=== PATIENT | female | born 1990 | race Caucasian/White ===

== ENCOUNTER → 2019-11-17 15:02 | Outpatient (BNVA) | payer BC, SELFPAY | PROVIDERS: Visit Provider Nurse Practitioner Family | DX: N12 Tubulo-interstitial nephritis, not specified as acute or chronic (principal); N30.80 Other cystitis without hematuria | CPT/HCPCS: 81001 ==

== ENCOUNTER 2020-01-14 14:31 | Outpatient (CLI) | payer BC, MEDICAID, SELFPAY ==
--- NOTE | 2020-01-14 14:37 | US_ITS ---
WS: [id number] TRANSABDOMINAL PELVIC AND TRANSVAGINAL PELVIC ULTRASOUND HISTORY: PELVIC PAIN, CHRONIC COMPARISON: 05/20/2016 Uterus: 10.30 cm x 6.0 cm x 5.6 cm. Mild enlargement of the uterus is anteverted. No fibroid or mass. Endometrium: 2.0 cm. Uterus is thickened with mild heterogeneity. No discrete mass. Right ovary: 2.0 cm x 2.4 cm x 1.3 cm. No solid or cystic masses. Normal vascularity. Left ovary: 3.2 cm x 1.9 cm x 2.9 cm. No solid or cystic masses. Normal vascularity. No free fluid. US/US pelvic with transvaginal IMPRESSION: 1. Thickened endometrium. Suspect endometrial hyperplasia. No mass identified. Recommend direct visualization with hysteroscopy or short-term ultrasound foll ow-up. 2. No evidence for polycystic ovarian disease.
== END 2020-01-14 14:32 | disposition home or self-care (01) ==
LOC: RAD 14:33
PROVIDERS: PCP Nurse Practitioner Family; Visit Provider Family Medicine
DX: R10.2 Pelvic and perineal pain (principal); R93.89 Abnormal findings on diagnostic imaging of other specified body structures
CPT/HCPCS: 76830; 76856

== ENCOUNTER 2020-01-17 09:32 | Outpatient (CLI) | payer BC, MEDICAID, SELFPAY ==
--- NOTE | 2020-01-17 09:00 | XRR_ITS ---
PROCEDURE INFORMATION: Exam: XR Abdomen, 1 View Exam date and time: 01/17/2020 9:47 AM Age: 29 years old Clinical indication: Condition or disease; Kidney or ureter condition; Calculus (stone) in kidney; Prior surgery; Surgery date: 1-6 months; Surgery type: Kidney stones/stent and removal; Patient HX: Follow up kidney stones TECHNIQUE: Imaging protocol: XR of the abdomen. Views: Frontal supine view of the abdomen. 1 View. COMPARISON: CR Abdomen 1 view [id number] 02/09/2019 7:14 AM FINDINGS: Gastrointestinal tract: The bowel gas pattern is nonspecific. Air filled large bowel including distal rectal gas. Organs: Surgical clips are present in the region of the gallbladder fossa. No calcifications are seen overlying the renal outlines or the expected course of the right or left ureters. No suspicious calcifications within the pelvis. Bones/joints: Unremarkable. XR/XR KUB [id number] IMPRESSION: The bowel gas pattern is nonspecific. Air filled large bowel including distal rectal gas.
== END 2020-01-17 09:33 | disposition home or self-care (01) ==
LOC: RAD 09:36
PROVIDERS: PCP Nurse Practitioner Family; Visit Provider Urology
DX: N20.9 Urinary calculus, unspecified (principal)
CPT/HCPCS: 74018; 80053; 81001

== ENCOUNTER → 2020-02-11 10:32 | Outpatient (BNVA) | payer BC, SELFPAY | PROVIDERS: PCP Nurse Practitioner Family; Visit Provider Obstetrics & Gynecology | DX: Z34.90 Encounter for supervision of normal pregnancy, unspecified, unspecified trimester (principal) | CPT/HCPCS: 80053; 80307; 81025; 83036; 84315; 84702; 85027; 86592; 86762; 86803; 86850; 86900; 87340; 87806 ==

== ENCOUNTER → 2020-02-15 16:06 | Outpatient (BNVA) | payer BC, SELFPAY | PROVIDERS: PCP Nurse Practitioner Family; Visit Provider Obstetrics & Gynecology | DX: Z36.87 Encounter for antenatal screening for uncertain dates (principal) | CPT/HCPCS: 76817 ==

== ENCOUNTER → 2020-02-25 10:40 | Outpatient (BNVA) | payer BC, MEDICAID, SELFPAY | PROVIDERS: PCP Nurse Practitioner Family; Visit Provider Obstetrics & Gynecology | DX: O24.911 Unspecified diabetes mellitus in pregnancy, first trimester (principal); O99.210 Obesity complicating pregnancy, unspecified trimester; Z3A.00 Weeks of gestation of pregnancy not specified | CPT/HCPCS: 82950 ==

== ENCOUNTER → 2020-04-07 08:10 | Outpatient (BNVA) | payer BC, MEDICAID, SELFPAY | PROVIDERS: PCP Nurse Practitioner Family; Visit Provider Nurse Practitioner Women's Health | DX: R73.09 Other abnormal glucose (principal) | CPT/HCPCS: 82951; 82952 ==

== ENCOUNTER → 2020-04-11 09:21 | Outpatient (BNVA) | payer BC, MEDICAID, SELFPAY | PROVIDERS: PCP Nurse Practitioner Family; Visit Provider Obstetrics & Gynecology | DX: O24.912 Unspecified diabetes mellitus in pregnancy, second trimester (principal); O09.92 Supervision of high risk pregnancy, unspecified, second trimester; O99.210 Obesity complicating pregnancy, unspecified trimester; Z3A.00 Weeks of gestation of pregnancy not specified | CPT/HCPCS: 83036; 84315 ==

== ENCOUNTER → 2020-04-18 08:15 | Outpatient (BNVA) | payer BC, MEDICAID, SELFPAY | PROVIDERS: PCP Nurse Practitioner Family; Visit Provider Nurse Practitioner Family | DX: Z11.59 Encounter for screening for other viral diseases (principal) | CPT/HCPCS: 87635 ==

== ENCOUNTER → 2020-05-17 16:06 | Outpatient (BNVA) | payer BC, MEDICAID, SELFPAY | PROVIDERS: PCP Nurse Practitioner Family; Visit Provider Urology | DX: N20.9 Urinary calculus, unspecified (principal); Z87.440 Personal history of urinary (tract) infections | CPT/HCPCS: 81003 ==

== ENCOUNTER 2020-05-29 12:02 | Outpatient (CLI) | payer BC, MEDICAID, SELFPAY ==
[2020-05-29 12:49] LABS: Total Volume Urine 2475 ml; Total Volume, Urine 2475 mL
[2020-05-29 13:02] LABS: Patient Weight 300.6 Lbs
[2020-05-29 13:23] LABS: Basophils # 0.1 10^3/uL (0.0-0.1); Basophils % 0.5 %; Eosinophils # 0.1 10^3/uL (0.0-0.8); Eosinophils % 1.1 %; Hemoglobin 12.9 g/dL (11.5-15.3); Lymphocytes # 3.5 10^3/uL (0.8-4.8); Lymphocytes % 26.4 %; Mean Corpuscular HGB Conc 31.5 g/dL (30.0-36.0); Mean Corpuscular Hemoglobin 26.8 pg (28.0-34.0); Mean Corpuscular Volume 85.1 fL (81-99); Mean Platelet Volume 9.2 fL (7.4-10.4); Monocytes # 0.9 10^3/uL (0.2-0.9); Monocytes % 6.4 %; Neutrophils # 8.66 10^3/uL (1.8-7.7); Neutrophils % 64.9 %; Nucleated Red Blood Cells % 0 %; Platelet Count 279 10^3/cmm (130-400); Red Blood Count 4.82 10^6/uL (4.1-5.3); Red Cell Distribution Width 14.5 % (12.1-15.1); White Blood Count 13.3 10^3/uL (4.0-10.0)
[2020-05-29 13:45] LABS: Alanine Aminotransferase 10 U/L (0-33); Albumin Level 3.6 g/dL (3.5-5.2); Alkaline Phosphatase 57 IU/L (35-105); Anion Gap 15.7 (5-19); Aspartate Amino Transferase 10 U/L (0-32); Blood Urea Nitrogen 8 mg/dL (6-20); Calcium 9.3 mg/dL (8.5-10.5); Carbon Dioxide 24 mmol/L (22-29); Chloride 103 mmol/L (98-107); Globulin 3.3 g/dL (1.3-4.6); Glomerular Filtration Rate 187.4 mL/min (90-130); Glucose 68 mg/dL (65-115); Osmolality Calculated 285 mOsm/kg (285-295); Potassium 3.7 mmol/L (3.5-5.1); Sodium 139 mmol/L (136-145); Total Bilirubin 0.2 mg/dL (0.15-1.2); Total Protein 6.9 g/dL (6.6-8.7)
[2020-05-29 13:49] LABS: Glomerular Filtration Rate 187.4 mL/min (90-130); Microalbumin Total Volume 2475 mL
[2020-05-29 14:21] LABS: Estmated Average Glucose 103; Hemoglobin A1C 5.2 % (4.0-6.0)
[2020-05-29 17:09] LABS: Microalbumin 24 Hour Result 30 mg/24HR (0-30); Microalbumin Result 1.2 mg/dL
[2020-05-29 18:24] LABS: Creatinine Clearance, Urine 377 mL/Min (88-128); Creatinine, Urine (Cre Clear) 83 mg/dL (28-217); Total Protein 24 Hour Urine 141.1 mg/24HR (0-150); Urine Total Protein 24 Hour 5.7 mg/dL (0-150)
== END 2020-05-29 12:03 | disposition home or self-care (01) ==
PROVIDERS: PCP Nurse Practitioner Family; Visit Provider Nurse Practitioner Women's Health
DX: O10.919 Unspecified pre-existing hypertension complicating pregnancy, unspecified trimester (principal)
CPT/HCPCS: 36415; 80053; 82043; 82575; 83036; 84156; 84550; 85025

== ENCOUNTER → 2020-06-21 12:03 | Outpatient (BNVA) | payer BC, MEDICAID, SELFPAY | PROVIDERS: PCP Nurse Practitioner Family; Visit Provider Obstetrics & Gynecology | DX: Z34.90 Encounter for supervision of normal pregnancy, unspecified, unspecified trimester (principal) | CPT/HCPCS: 84315; 85027 ==

== ENCOUNTER 2020-07-13 19:00 | Observation (INO) | payer BC, MEDICAID, SELFPAY ==
[2020-07-13] VITALS (39 sets, daily range): BP systolic 114–196; BP diastolic 64–93; PULSE 88–115; RESP 16; TEMP 36.4–36.7; O2SAT 92–100; BMI 51.6
[2020-07-13 15:20] LABS: Bilirubin Urine Neg (Negative); Blood Urine 2+ (Negative); Glucose Urine UA Norm (Normal); Ketones Urine Negative (Negative); Leukocyte Esterase Urine Negative (Negative); Nitrate Urine Negative (Negative); Protein Urine Neg (Negative); Urine Appearance Cloudy (CLEAR); Urine Color Yellow (Yellow); Urobilinogen Urine Norm (Negative); pH Urine 6.5 (5-7)
[2020-07-13 15:36] LABS: Add Urine Culture? No; Bacteria Urine 2+ /hpf; Calcium Oxalate Crystals Urine 0-4 /hpf; RBC Urine 0-4 /hpf (0-2); Squamous Epithelial Cell Urine 25-40 /hpf (0-5); WBC Urine 15-25 /hpf (0-5)
[2020-07-13 16:19] LABS: Basophils % 0.2 %; Eosinophils # 0.2 10^3/uL (0.0-0.8); Eosinophils % 1.1 %; Hematocrit 40.1 % (37.0-47.0); Lymphocytes # 3.2 10^3/uL (0.8-4.8); Lymphocytes % 22.9 %; Mean Corpuscular HGB Conc 32.4 g/dL (30.0-36.0); Mean Corpuscular Hemoglobin 26.9 pg (28.0-34.0); Mean Platelet Volume 9.2 fL (7.4-10.4); Monocytes % 7.2 %; Neutrophils # 9.37 10^3/uL (1.8-7.7); Neutrophils % 67.8 %; Nucleated Red Blood Cells % 0 %; Platelet Count 253 10^3/cmm (130-400); Red Blood Count 4.83 10^6/uL (4.1-5.3); Red Cell Distribution Width 14.7 % (12.1-15.1); White Blood Count 13.8 10^3/uL (4.0-10.0)
[2020-07-13] MEDS: terbutaline 1 mg/mL INJ 0.25 MG SUBCUT ×2 (16:39→19:55)
[2020-07-13 16:57] LABS: Alanine Aminotransferase 7 U/L (0-33); Albumin Level 3.7 g/dL (3.5-5.2); Alkaline Phosphatase 82 IU/L (35-105); Aspartate Amino Transferase 10 U/L (0-32); Blood Urea Nitrogen 6 mg/dL (6-20); Calcium 9.3 mg/dL (8.5-10.5); Carbon Dioxide 23 mmol/L (22-29); Chloride 104 mmol/L (98-107); Globulin 3.2 g/dL (1.3-4.6); Glomerular Filtration Rate 259.5 mL/min (90-130); Glucose 76 mg/dL (65-115); Osmolality Calculated 284 mOsm/kg (285-295); Sodium 139 mmol/L (136-145); Total Bilirubin 0.2 mg/dL (0.15-1.2); Total Protein 6.9 g/dL (6.6-8.7)
[2020-07-13 17:07] LABS: Urine Creatinine 132 mg/dL (28-217); Urine Protein Random 20 mg/dL
[2020-07-13 17:08] LABS: UPRO/UCREAT Ratio 0.15 mg/mg CR
[2020-07-13] MEDS: cefTRIAXone 2,000 MG in sodium chloride 0.9% (plus) 50 ML 100 MG IV (19:30)
[2020-07-13] MEDS: sodium chloride 0.9% 1,000 ML 125 ML IV (19:30)
--- NOTE | 2020-07-13 19:55 | PC.NURSE ---
Higher pressures showing taken with radial cuff with monitor, lower pressures taken with large red cuff with portable vitals cart.
[2020-07-13 20:04] LABS: Urine Appearance Clear (CLEAR); Urine Color Yellow (Yellow)
[2020-07-13 20:05] LABS: Bilirubin Urine Neg (Negative); Blood Urine Neg (Negative); Glucose Urine UA Norm (Normal); Ketones Urine 2+ (Negative); Leukocyte Esterase Urine Negative (Negative); Nitrate Urine Negative (Negative); Protein Urine Neg (Negative); Urobilinogen Urine Norm (Negative)
[2020-07-13 20:13] LABS: Bacteria Urine TRACE /hpf; RBC Urine 0-4 /hpf (0-2); Squamous Epithelial Cell Urine 0-4 /hpf (0-5)
[2020-07-13 20:14] LABS: Add Urine Culture? No
[2020-07-13 20:22] LABS: Glucose Point of Care 102 mg/dL (70-110)
[2020-07-13] MEDS: hyDROXYzine 25 mg Capsule 50 MG PO (21:51)
[2020-07-13 22:24] LABS: Glucose Point of Care 123 mg/dL (70-110)
--- NOTE | 2020-07-14 02:14 | PM.OBGYHP ---
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 Her is complicated by Gestational diabetes, history of labor, currently on [place] and history of preeclampsia. She was found to be having irregular contractions and she had elevated blood pressures. Labs were performed and found to be normal. An appropriate blood pressure cuff was finally found to use on the patient and her blood pressures were found to be normal as well. She received a dose of terbutaline and the contractions stopped. They started back up again, more irregular and another dose was given of terbutaline. She had an IV started with fluids and rocephin due to the flank pain and blood in her urine. The uterus quieted down and the contractions stopped. She is admitted for observation overnight due to history of labor. Her cervix has remained closed. Present Details : 3 Para: 2 Review of Systems General: Reports: 10 or more systems reviewed and unremarkable except in HPI and below Medications/Allergies Home Medications Medication Instructions Recorded Confirmed Last Taken Type vitamins with calcium 1 tab PO DAILY #90 tab 02/11/20 07/11/20 Unknown Rx no.72-iron 29 mg-folic acid 1 mg tablet blood sugar diagnostic #120 each 04/04/20 07/11/20 Unknown Rx blood-glucose meter #1 each 04/04/20 07/11/20 Unknown Rx lancets #120 each 04/04/20 07/11/20 Unknown Rx loratadine 10 mg tablet 10 mg PO DAILY 04/04/20 07/11/20 Unknown History insulin syringe,safetyneedle 1 mL #100 each 04/13/20 07/11/20 Unknown Rx 29 gauge x 1/2 aspirin 81 mg tablet,delayed 81 mg PO DAILY 05/16/20 07/11/20 Unknown History release insulin aspart U-100 100 unit/mL 33 unit SUBCUT TID ml 07/11/20 07/11/20 Unknown History (3 mL) subcutaneous pen insulin detemir U-100 100 unit/mL 50 unit SUBCUT .every 12 hours ml 07/11/20 07/11/20 Unknown History subcutaneous solution Allergies Allergy/AdvReac Type Severity Reaction Status Date / Time ciprofloxacin [From Cipro] Allergy seizures Verified 07/11/20 11:10 latex Allergy blisters Verified 07/11/20 11:10 Penicillins Allergy hives Verified 07/11/20 11:10 prochlorperazine Allergy seizure Verified 07/11/20 11:10 [From Compazine] promethazine Allergy anaphylaxis Verified 07/11/20 11:10 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 Clotting disorder Grandmother Heart disease Maternal Ovarian cancer, Onset Age: 20 Maternal Denies family history of Bleeding disorder Cancer Social History Smoking and tobacco status: never smoked Alcohol intake: never Other details last substance use: Denies drug use. Other Female Reproductive History: Hx Age of Menarche: 8 History History History 3 Term 0 Miscarriages/Ectopic 0 2 Living Children 2 Care STEFANIA Calculator Estimated Delivery Date Method Current WG Current Estimate 09/19/20 Ultrasound #1 30w 3d Expected Delivery Route/Plan Vaginal Specific Issues/Plans HX OF PTL AND PTD-- 35 and 36 weeks OBESITY DIABETES -- likely pre-gestational Vitals/I&O/Wt Last Vital Signs Temp 97.6 F 07/13/20 19:20 Pulse 103 H 07/13/20 22:16 Resp 16 07/13/20 22:16 BP 137/82 07/13/20 22:16 Pulse Ox 100 07/13/20 18:35 Weight last 48 hrs Weight 301 lb Physical Exam Const: COMMON NORMALS: no acute distress, patient oriented x3 and alert GENERAL APPEARANCE: cooperative, comfortable and well developed ORIENTATION/CONSCIOUSNESS: Yes awake, Yes oriented to person, Yes oriented to place and Yes oriented to time Resp: COMMON NORMALS: normal respiratory effort and No retractions EFFORT & INSPECTION: Yes able to speak in complete sentences Extremity: COMMON NORMALS: normal to inspection and full ROM Psych: COMMON NORMALS: mental status grossly normal, Normal thought process present, cooperative, normal affect and speech normal APPEARANCE: Yes grossly normal ATTITUDE: Yes calm and Yes engaged ACTIVITY/MOTOR BEHAVIOR: Yes appropriate eye contact SPEECH: Yes normal speech THOUGHT PROCESS: Normal thought process present THOUGHT CONTENT: Yes Normal thought content present MEMORY/COGNITION: Yes cognition grossly intact Data : 07/13/20 16:08 07/13/20 16:08 A&P Assessment and plan (1) History of delivery, currently : admit for observation for labor Status: Acute Attestations Medical Necessity Statement*: The patient is admitted for observation Time Spent in Patient Care: 16 - 35 minutes Coding Level of Care Code Acute Aircraft Detail Draftsperson for Sharlene Aguilar Diagnoses History of delivery, currently O09.899
[2020-07-14] MEDS: sodium chloride 0.9% 1,000 ML 125 ML IV (05:16)
[2020-07-14 05:28] VITALS: BP 135/82; PULSE 87; RESP 15; TEMP 36.5; O2SAT 96
[2020-07-14 07:55] LABS: Glucose Point of Care 81 mg/dL (70-110)
[2020-07-14] MEDS: betamethasone susp 6 mg/mL 5 mL 12 MG IM (08:34)
[2020-07-14 10:20] LABS: Glucose Point of Care 77 mg/dL (70-110)
--- NOTE | 2020-07-14 12:25 | P.PN_ITS ---
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 She denies any contractions. there has been good movement. Blood sugars have been a little on the low side. Labor: Station: -5 Amniotic Membrane Status: Intact Monitor Mode: External Contraction Pattern: Rare Status: Category I Vitals/I&O/Wt Last Vital Signs Temp 97.7 F 07/14/20 05:28 Pulse 87 07/14/20 05:28 Resp 15 07/14/20 05:28 BP 135/82 07/14/20 05:28 Pulse Ox 96 07/14/20 05:28 07/13/20 07/14/20 07/14/20 22:59 06:59 14:59 Intake Total 1000 / 1000 50 / 50 Balance 1000 / 1000 50 / 50 Weight last 48 hrs Weight 301 lb Physical Exam Const: COMMON NORMALS: no acute distress, patient oriented x3, alert and well nourished GENERAL APPEARANCE: cooperative, comfortable and well kempt ORIENTATION/CONSCIOUSNESS: Yes awake, Yes oriented to person, Yes oriented to place and Yes oriented to time HENMT: COMMON NORMALS: normocephalic, atraumatic and Normal external nose present HEAD & SCALP: normocephalic and atraumatic FACE & SINUS: normal facial exam NOSE: Normal external nose present Resp: COMMON NORMALS: normal respiratory effort and No retractions EFFORT & INSPECTION: Yes able to speak in complete sentences Extremity: COMMON NORMALS: normal to inspection and no calf tenderness Neuro: COMMON NORMALS: patient oriented x3 SENSORIUM/ORIENTATION: Yes alert, Yes oriented to person, Yes oriented to place and Yes oriented to time Psych: COMMON NORMALS: mental status grossly normal, cooperative, normal affect and speech normal APPEARANCE: Yes grossly normal and Yes well kempt ATTITUDE: Yes calm and Yes engaged SPEECH: Yes normal speech Data : 07/13/20 16:08 07/13/20 16:08 Attestations Medical Necessity Statement*: The patient was admitted for observation. She is doing well and ready for discharge Coding Level of Care Code Acute Equipment Service Associate for Sharlene Aguilar
--- NOTE | 2020-07-14 12:29 | P.DS_ITS ---
Discharge Providers Date of Admission: 07/13/20 19:00 Date of Discharge: July 14, 2020 Attending Provider at Admission: Abelardo Mccollum MD Attending Provider at Discharge: Abelardo Mccollum MD Primary Care Provider: David Alcaraz NP Diagnoses at Discharge Discharge Diagnosis (1) History of delivery, currently : Status: Acute Reason for Visit Reason for Visit: Flank Pain Hospital Course Hospital Course The patient was admitted for observation due to history of labor and presenting with irregular contractions. Her blood pressure was elevated initially, but this was due to no correct cuff being available for her size. another automated blood pressure machine was used and her blood pressures were all normal. She was having contractions and two doses of terbutline were given. The irritablility ceased. She also had blood in her urine. A urine culture was obtained and IV rocephin started as well as IV fluids. all other labs were normal. She was started on a diabetic diet. She did receive a dose of betamethasone and will receive the second dose in 24 hours. She did well overnight and denied any further contractions. She was ready for discharge on day #1 Discharge Data Data Completed and Pending: Pending at discharge Category Date Time Status Urine Culture Sta t Lab 07/13/20 19:15 Received Labs from last 24 hours 07/14/20 07/14/20 07/13/20 10:14 07:40 22:19 WBC RBC Hgb Hct MCV MCH MCHC RDW Plt Count MPV Neut % (Auto) Lymph % (Auto) [place] % (Auto) Eos % (Auto) Baso % (Auto) Neut # (Auto) Lymph # (Auto) [place] # (Auto) Eos # (Auto) Baso # (Auto) Nucleated RBC % (a uto) Nucleated RBCs # Sodium Potassium Chloride Carbon Dioxide Anion Gap BUN Creatinine GFR Calculation Glucose POC Glucose 77 81 123 H Calculated Osmolal ity Uric Acid Calcium Total Bilirubin AST ALT Alkaline Phosphata se Total Protein Albumin Globulin Urine Color Urine Appearance Urine pH Ur Specific Gravit y Urine Protein Urine Glucose (UA) Urine Ketones Urine Blood Urine Nitrate Urine Bilirubin Urine Urobilinogen Ur Leukocyte Karla ase Urine RBC Urine WBC Ur Squamous Epith Cells Calcium Oxalate Cr ystal Amorphous Sediment Urine Bacteria U Random Total Pro tein Urine Creatinine Protein/Creatinin Ratio 07/13/20 07/13/20 07/13/20 20:16 19:15 16:08 WBC RBC Hgb Hct MCV MCH MCHC RDW Plt Count MPV Neut % (Auto) Lymph % (Auto) [place] % (Auto) Eos % (Auto) Baso % (Auto) Neut # (Auto) Lymph # (Auto) [place] # (Auto) Eos # (Auto) Baso # (Auto) Nucleated RBC % (a uto) Nucleated RBCs # Sodium 139 Potassium 4.0 Chloride 104 Carbon Dioxide 23 Anion Gap 16.0 BUN 6 Creatinine 0.3 L GFR Calculation 259.5 H Glucose 76 POC Glucose 102 Calculated Osmolal ity 284 L Uric Acid 4.0 Calcium 9.3 Total Bilirubin 0.2 AST 10 ALT 7 Alkaline Phosphata se 82 Total Protein 6.9 Albumin 3.7 Globulin 3.2 Urine Color Yellow Urine Appearance Clear Urine pH 6.0 Ur Specific [place] 1.020 Urine Protein Neg Urine Glucose (UA) Norm Urine Ketones 2+ H Urine Blood Neg Urine Nitrate Negative Urine Bilirubin Neg Urine Urobilinogen Norm Ur Leukocyte Karla ase Negative Urine RBC 0-4 H Urine WBC None Ur Squamous Epith Cells 0-4 H Calcium Oxalate Cr ystal Amorphous Sediment Not Reportable Urine Bacteria Trace U Random Total Pro tein Urine Creatinine Protein/Creatinin Ratio 07/13/20 07/13/20 07/13/20 16:08 16:08 14:45 WBC 13.8 H RBC 4.83 Hgb 13.0 Hct 40.1 MCV 83.0 MCH 26.9 L MCHC 32.4 RDW 14.7 Plt Count 253 MPV 9.2 Neut % (Auto) 67.8 Lymph % (Auto) 22.9 [place] % (Auto) 7.2 Eos % (Auto) 1.1 Baso % (Auto) 0.2 Neut # (Auto) 9.37 H Lymph # (Auto) 3.2 [place] # (Auto) 1.0 H Eos # (Auto) 0.2 Baso # (Auto) 0.0 Nucleated RBC % (a uto) 0 Nucleated RBCs # 0.0 Sodium Potassium Chloride Carbon Dioxide Anion Gap BUN Creatinine GFR Calculation Glucose POC Glucose Calculated Osmolal ity Uric Acid Calcium Total Bilirubin AST ALT Alkaline Phosphata se Total Protein Albumin Globulin Urine Color Yellow Urine Appearance Cloudy Urine pH 6.5 Ur Specific [place] 1.020 Urine Protein Neg Urine Glucose (UA) Norm Urine Ketones Negative Urine Blood 2+ H Urine Nitrate Negative Urine Bilirubin Neg Urine Urobilinogen Norm Ur Leukocyte Karla ase Negative Urine RBC 0-4 H Urine WBC 15-25 H Ur Squamous Epith Cells 25-40 H Calcium Oxalate Cr ystal 0-4 H Amorphous Sediment Not Reportable Urine Bacteria 2+ H U Random Total Pro tein 20 Urine Creatinine 132 Protein/Creatinin Ratio 0.15 Vitals: Last Vital Signs Temp 97.7 F 07/14/20 05:28 Pulse 87 07/14/20 05:28 Resp 15 07/14/20 05:28 BP 135/82 07/14/20 05:28 Pulse Ox 96 07/14/20 05:28 Discharge Plan Discharge Condition: Stable Prescriptions: Continued Plus 29 mg iron- 1 mg tablet 1 tab PO DAILY Qty: 90 RF: 3 loratadine [Claritin] 10 mg tablet 10 mg PO DAILY RF: 0 aspirin [Aspirin Low Dose] 81 mg tablet,delayed release (DR/EC) 81 mg PO DAILY RF: 0 insulin aspart U-100 [Novolog Flexpen U-100 Insulin] 100 unit/mL (3 mL) insulin pen 33 unit SUBCUT TID RF: 0 Levemir U-100 Insulin 100 unit/mL solution 50 unit SUBCUT .every 12 hours RF: 0 (DME) blood-glucose meter [Blood Glucose Monitoring] Kit See Rx Instructions .ROUTE .MEDSUPPLY Qty: 1 RF: 0 (DME) Blood Glucose Test Strip See Rx Instructions .ROUTE .MEDSUPPLY Qty: 120 RF: 5 (DME) lancets [Lancets,Thin] Misc See Rx Instructions .ROUTE .MEDSUPPLY Qty: 120 RF: 5 (DME) insulin syringe,safetyneedle 1 mL 29 gauge x 1/2 syringe See Rx Instructions .ROUTE .MEDSUPPLY Qty: 100 RF: 12 Discharge Orders: Discharge Order (Routine); Ordered 07/14/20 Ordered By: Irina Gandara Discharge Attestations Time Spent in Discharge Care*: less than 30 min Quality Metrics Clinical Quality Measures During this hospital stay, did patient experience: None Coding Level of Care Code Acute Social Services Assistant for Chg Fwd Diagnoses History of delivery, currently O09.899
[2020-07-14 13:50] VITALS: BP 114/69; PULSE 101; RESP 17; TEMP 36.8
[2020-07-14 20:37] VITALS: BP 114/69; PULSE 101; RESP 17; TEMP 36.8
[2020-07-22 04:26] VITALS: BP 135/74; PULSE 80
== END 2020-07-14 14:10 | disposition home or self-care (01) ==
LOC: OBGYN 07-14 12:29 → OPOB 08-08 11:05 → OBGYN 08-08 11:05
PROVIDERS: Obstetrics & Gynecology; Admitting Provider Obstetrics & Gynecology; PCP Nurse Practitioner Family; Visit Provider Obstetrics & Gynecology
DX: O09.213 Supervision of pregnancy with history of pre-term labor, third trimester (principal); O24.419 Gestational diabetes mellitus in pregnancy, unspecified control; Z3A.30 30 weeks gestation of pregnancy; Z79.4 Long term (current) use of insulin; Z79.82 Long term (current) use of aspirin
CPT/HCPCS: 12345; 36415; 36416; 51702; 59025; 80053; 81001; 82570; 82962; 84156; 84550; 85025; 87086; 96360; 96372; 99211; G0378; J0696; J0702; J3105; J7030

== ENCOUNTER 2020-07-15 08:06 | Outpatient (CLI) | payer BC, MEDICAID, SELFPAY ==
[2020-07-15] VITALS (11 sets, daily range): BP systolic 134–153; BP diastolic 65–85; PULSE 90–100; RESP 17; TEMP 36.4
[2020-07-15] MEDS: lactated ringers 1,000 ML 999 ML IV (10:06)
[2020-07-15 10:27] LABS: Add Urine Microscopic? NO
[2020-07-15 10:32] LABS: Bilirubin Urine Neg (Negative); Blood Urine Neg (Negative); Glucose Urine UA Norm (Normal); Ketones Urine Negative (Negative); Leukocyte Esterase Urine Negative (Negative); Nitrate Urine Negative (Negative); Protein Urine Neg (Negative); Specific Gravity, Urine 1.015 (1.005-1.030); Urine Appearance Clear (CLEAR); Urine Color Straw (Yellow); Urobilinogen Urine Norm (Negative); pH Urine 6.5 (5-7)
[2020-07-15] MEDS: betamethasone susp 6 mg/mL 5 mL 12 MG IM (10:47)
[2020-07-15 11:05] LABS: Urine Creatinine 58 mg/dL (28-217); Urine Protein Random 12 mg/dL
[2020-07-15 11:10] LABS: UPRO/UCREAT Ratio 0.21 mg/mg CR
--- NOTE | 2020-07-15 12:32 | PM.ACPR ---
Procedure/Consent Procedure Narrative: NONSTRESS TEST: Place of test: [facility] [place]D Indication: 30-year-old 3 para 0-2-0-2, diabetes, likely chronic hypertensive, Date and time of test: 07/15/2020, 10:30 AM Baseline: 145, Variability: Moderate variability Accelerations: Present Decelerations: None Tocometry: No contractions INTERPRETATION: NST reactive, continue kick counts
== END 2020-07-15 11:20 | disposition home or self-care (01) ==
LOC: OPOB 08:11 → OBGYN 08:12
PROVIDERS: PCP Nurse Practitioner Family; Visit Provider Obstetrics & Gynecology
DX: O24.419 Gestational diabetes mellitus in pregnancy, unspecified control (principal); Z3A.00 Weeks of gestation of pregnancy not specified
CPT/HCPCS: 12345; 59025; 81003; 82570; 84156; 96360; 96361; 96372; J0702

== ENCOUNTER 2020-08-01 14:58 | Outpatient (CLI) | payer BC, MEDICAID, SELFPAY ==
[2020-08-01] VITALS (17 sets, daily range): BP systolic 143–213; BP diastolic 65–88; PULSE 91–114; RESP 18; O2SAT 98–100; BMI 51.6
[2020-08-01] MEDS: terbutaline 1 mg/mL INJ 0.25 MG SUBCUT (15:59)
== END 2020-08-01 17:05 | disposition home or self-care (01) ==
LOC: OPOB 15:01 → OBGYN 15:05
PROVIDERS: PCP Nurse Practitioner Family; Visit Provider Obstetrics & Gynecology
DX: O26.899 Other specified pregnancy related conditions, unspecified trimester (principal); Z3A.00 Weeks of gestation of pregnancy not specified; R10.9 Unspecified abdominal pain
CPT/HCPCS: 81000; 96372; 99211; J3105

== ENCOUNTER 2020-08-04 09:20 | Outpatient (CLI) | payer BC, MEDICAID, SELFPAY ==
[2020-08-04 09:20] VITALS: BMI 51.8
[2020-08-04 09:41] VITALS: BP 135/89; PULSE 105; TEMP 36.4
--- NOTE | 2020-08-04 09:44 | US_ITS ---
WS: [id number] ULTRASOUND OB LIMITED TECHNIQUE: Limited ultrasound examination of the fetus. CLINICAL INFORMATION: hypertension; gestational diabetes COMPARISON: None. FINDINGS: Cervix measures 5.1 cm Ultrasound gestational age 32 weeks 4 days with estimated delivery September 25, 2020 Single interuterine gestation. presentation is vertex heart rate 147 BPM. Normal JOSE 7.5 cm Biophysical profile 8 out of 8. breathin movement: 2 tone: 2 Amniotic fluid: 2 IMPRESSION Normal biophysical profile 8 out of 8
--- NOTE | 2020-08-04 10:03 | PC.NURSE ---
Order clarification Orders were called over at 0908 for BPP only. NST was completed in office and patient sent over for test. Pt was asked why she was sent over for BPP due to not being on the schedule. She stated that she thought it was because there was not an US tech at the office. This nurse notified the [facility] for clarification of order at 0936. This nurse spoke with (nurse of Dr. Mccollum) and asked for her to clarify with physician that he did not want monitoring performed while patient was on the floor. She stated that he does not want monitoring performed. He only want the BPP.
[2020-08-04 10:18] VITALS: BP 133/83; PULSE 96
== END 2020-08-04 10:16 | disposition home or self-care (01) ==
LOC: OPOB 09:21 → OBGYN 09:22
PROVIDERS: PCP Nurse Practitioner Family; Visit Provider Obstetrics & Gynecology
DX: O26.899 Other specified pregnancy related conditions, unspecified trimester (principal); Z3A.00 Weeks of gestation of pregnancy not specified
CPT/HCPCS: 76819; 99211

== ENCOUNTER → 2020-08-08 10:49 | Outpatient (BNVA) | payer BC, MEDICAID, SELFPAY | PROVIDERS: PCP Nurse Practitioner Family; Visit Provider Obstetrics & Gynecology | DX: O09.92 Supervision of high risk pregnancy, unspecified, second trimester (principal); O24.112 Pre-existing type 2 diabetes mellitus, in pregnancy, second trimester; O36.63X0 Maternal care for excessive fetal growth, third trimester, not applicable or unspecified; O10.913 Unspecified pre-existing hypertension complicating pregnancy, third trimester; O09.899 Supervision of other high risk pregnancies, unspecified trimester; O99.210 Obesity complicating pregnancy, unspecified trimester; Z87.440 Personal history of urinary (tract) infections; N20.9 Urinary calculus, unspecified; Z3A.00 Weeks of gestation of pregnancy not specified; E34.9 Endocrine disorder, unspecified; E66.9 Obesity, unspecified | CPT/HCPCS: 81000 ==

== ENCOUNTER → 2020-08-15 15:02 | Outpatient (BNVA) | payer BC, MEDICAID, SELFPAY | PROVIDERS: PCP Nurse Practitioner Family; Visit Provider Obstetrics & Gynecology | DX: O10.913 Unspecified pre-existing hypertension complicating pregnancy, third trimester (principal) | CPT/HCPCS: 80053; 81000; 82570; 84156; 84550; 85025 ==

== ENCOUNTER → 2020-08-17 00:01 | Outpatient (BNVA) | payer BC, MEDICAID, SELFPAY | PROVIDERS: PCP Nurse Practitioner Family; Visit Provider Obstetrics & Gynecology | DX: O10.913 Unspecified pre-existing hypertension complicating pregnancy, third trimester (principal); O09.92 Supervision of high risk pregnancy, unspecified, second trimester; O24.912 Unspecified diabetes mellitus in pregnancy, second trimester; O36.63X0 Maternal care for excessive fetal growth, third trimester, not applicable or unspecified; N20.9 Urinary calculus, unspecified; O99.213 Obesity complicating pregnancy, third trimester; O24.112 Pre-existing type 2 diabetes mellitus, in pregnancy, second trimester; Z3A.00 Weeks of gestation of pregnancy not specified | CPT/HCPCS: 84156 ==

== ENCOUNTER → 2020-08-22 08:32 | Outpatient (BNVA) | payer BC, MEDICAID, SELFPAY | PROVIDERS: PCP Nurse Practitioner Family; Visit Provider Obstetrics & Gynecology | DX: O09.93 Supervision of high risk pregnancy, unspecified, third trimester (principal); O24.112 Pre-existing type 2 diabetes mellitus, in pregnancy, second trimester; O10.913 Unspecified pre-existing hypertension complicating pregnancy, third trimester; Z3A.00 Weeks of gestation of pregnancy not specified | CPT/HCPCS: 81000; 87077; 87081; 87184 ==

== ENCOUNTER → 2020-08-24 13:34 | Outpatient (BNVA) | payer BC, MEDICAID, SELFPAY | PROVIDERS: PCP Nurse Practitioner Family; Visit Provider Obstetrics & Gynecology | DX: O09.93 Supervision of high risk pregnancy, unspecified, third trimester (principal); Z11.52 Encounter for screening for COVID-19 | CPT/HCPCS: 87635 ==

== ENCOUNTER 2020-08-29 17:30 | Inpatient (IN) | payer BC, MEDICAID, SELFPAY ==
[2020-08-29] VITALS (37 sets, daily range): BP systolic 128–178; BP diastolic 58–94; PULSE 88–113; RESP 16; TEMP 36.7–37.1; BMI 53.5
--- NOTE | 2020-08-29 17:45 | PC.NURSE ---
Dr. Tavarez on unit. Gave orders for preeclamptic profile, hypertension crisis protocol, l&d admit orders. Call with lab results and more orders will be given at that time.
[2020-08-29 18:45] LABS: Basophils # 0.1 10^3/uL (0.0-0.1); Basophils % 0.4 %; Eosinophils # 0.2 10^3/uL (0.0-0.8); Eosinophils % 1.1 %; Hematocrit 41.2 % (37.0-47.0); Hemoglobin 13.3 g/dL (11.5-15.3); Lymphocytes # 2.7 10^3/uL (0.8-4.8); Lymphocytes % 20.7 %; Mean Corpuscular HGB Conc 32.3 g/dL (30.0-36.0); Mean Corpuscular Hemoglobin 26.5 pg (28.0-34.0); Mean Corpuscular Volume 82.1 fL (81-99); Mean Platelet Volume 9.9 fL (7.4-10.4); Monocytes # 0.9 10^3/uL (0.2-0.9); Monocytes % 7.2 %; Neutrophils # 9.19 10^3/uL (1.8-7.7); Neutrophils % 70.1 %; Nucleated Red Blood Cells % 0 %; Platelet Count 262 10^3/cmm (130-400); Red Blood Count 5.02 10^6/uL (4.1-5.3); Red Cell Distribution Width 15.3 % (12.1-15.1); White Blood Count 13.1 10^3/uL (4.0-10.0)
[2020-08-29 19:02] LABS: Alanine Aminotransferase 10 U/L (0-33); Albumin Level 3.3 g/dL (3.5-5.2); Alkaline Phosphatase 120 IU/L (35-105); Anion Gap 13.4 (5-19); Aspartate Amino Transferase 17 U/L (0-32); Blood Urea Nitrogen 13 mg/dL (6-20); Calcium 9.2 mg/dL (8.5-10.5); Carbon Dioxide 20 mmol/L (22-29); Chloride 102 mmol/L (98-107); Globulin 3.2 g/dL (1.3-4.6); Glomerular Filtration Rate 186.2 mL/min (90-130); Glucose 116 mg/dL (65-115); Osmolality Calculated 275 mOsm/kg (285-295); Potassium 3.4 mmol/L (3.5-5.1); Sodium 132 mmol/L (136-145); Total Bilirubin 0.2 mg/dL (0.15-1.2); Total Protein 6.5 g/dL (6.6-8.7)
[2020-08-29 19:24] LABS: Urine Appearance Clear (CLEAR); Urine Color Yellow (Yellow)
[2020-08-29 19:25] LABS: Add Urine Microscopic? YES; Bacteria Urine 2+ /hpf; Bilirubin Urine Neg (Negative); Blood Urine 2+ (Negative); Glucose Urine UA Norm (Normal); Ketones Urine Negative (Negative); Leukocyte Esterase Urine Trace (Negative); Nitrate Urine Negative (Negative); Protein Urine Neg (Negative); Squamous Epithelial Cell Urine 15-25 /hpf (0-5); Urobilinogen Urine Norm (Negative); WBC Urine 15-25 /hpf (0-5); pH Urine 6.5 (5-7)
[2020-08-29 20:49] LABS: Glucose Point of Care 67 mg/dL (70-110)
[2020-08-29] MEDS: NIFEdipine ER (24 hr) 30 mg Tablet PO (21:04)
[2020-08-29] MEDS: dextrose 50% syringe 50 mL 25 ML IVP (21:05)
[2020-08-29] MEDS: dextrose 5%-lactated ringers 1,000 ML 125 ML IV (21:20)
[2020-08-29 21:50] LABS: Urine Creatinine 164 mg/dL (28-217)
[2020-08-29 21:53] LABS: Urine Protein Random 32 mg/dL
[2020-08-29 22:10] LABS: Glucose Point of Care 100 mg/dL (70-110)
[2020-08-29] MEDS: oxytocin 30 UNIT/500 ML BAG IV (22:52)
[2020-08-30] VITALS (133 sets, daily range): BP systolic 120–171; BP diastolic 56–93; PULSE 69–136; RESP 16–20; TEMP 36.3–37.2; O2SAT 92–100
[2020-08-30 00:07] LABS: Glucose Point of Care 85 mg/dL (70-110)
[2020-08-30 01:06] LABS: Glucose Point of Care 92 mg/dL (70-110)
[2020-08-30 03:18] LABS: Glucose Point of Care 92 mg/dL (70-110)
[2020-08-30] MEDS: fentaNYL 50 mcg/mL INJ 2mL IV ×3 (03:42→07:23)
[2020-08-30 05:16] LABS: Glucose Point of Care 103 mg/dL (70-110)
[2020-08-30] MEDS: dextrose 5%-lactated ringers 1,000 ML 125 ML IV ×3 (05:34→21:54)
[2020-08-30] MEDS: lactated ringers 1,000 ML 999 ML IV (07:23)
[2020-08-30 08:06] LABS: Glucose Point of Care 86 mg/dL (70-110)
[2020-08-30 09:22] LABS: Glucose Point of Care 84 mg/dL (70-110)
--- NOTE | 2020-08-30 10:03 | ANES.PREANE2 ---
Pre-Anesthetic Assessment Pre-Anesthetic Assessment: Height/Weight: Height 1.63 m Weight 141.521 kg Temp Pulse Resp BP Pulse Ox 98.1 F 93 18 135/65 98 08/30/20 07:00 08/30/20 09:57 08/30/20 07:23 08/30/20 09:57 08/30/20 09:11 Was Beta Charbel taken within 24 hours: N/A Social: Social History: No alcohol and No tobacco Exam: Pre-Anes Outpt Exam: alert, oriented x 3, clear to auscultation bilaterally and regular rate & rhythm Airway: Submandibular: WNL Cervical ROM: WNL MP: 2 Dentition: Full CV/HEM: CV/HEM: HTN Metabolic: Metabolic: DM and Morbid obesity Comments: Gravid Anesthetic Plan: ASA status: 3 Other: Labor epidural Risk of > 500 ml blood loss (7ml/kg in children): No Meds/Allergies Current Medications: Current Medications Generic Name Dose Route Start Last Admin Trade Name Freq PRN Reason Stop Dose Admin Fentanyl 25 - 100 mcg 08/30/20 03:23 08/30/20 07:23 Fentanyl 50 Mcg/ Ml Inj 2ml IV 75 mcg Q1H PRN Administration SEVERE PAIN Dextrose/Lactated Ringer's 1,000 mls @ 125 m ls/hr 08/29/20 18:30 08/30/20 05:34 Dextrose 5%-Lact ated Ringers IV 125 mls/hr .Q8H LÓPEZ Administration Oxytocin 30 unit in 500 ml s @ 1 mls/hr 08/29/20 22:30 08/30/20 00:45 Pitocin IV 4 milliunit/min .Q24H LÓPEZ 4 mls/hr Titration Protocol 1 MILLIUNIT/MIN Lactated Ringer's 1,000 mls @ 999 m ls/hr 08/30/20 07:03 08/30/20 07:23 Lactated Ringers IV 999 mls/hr .Q1H1M PRN Administration See label comment s Nifedipine 30 mg 08/29/20 21:00 08/29/20 21:04 Nifedipine Er (2 4 Hr) 30 Mg Tablet PO 30 mg BEDTIME LÓPEZ Administration PFSH Anesthesia PFSH: Medical History Diabetes No pertinent past medical history neghx:thyroid,dvt/pe,herpes Denies partner hx of herpes Urolithiasis Surgical History History of cholecystectomy History of lithotripsy (~07/2018) History of renal stent (~07/2018) right History of tonsillectomy History of wisdom tooth extraction Family History Family/Other CAD (coronary artery disease) Mother Stroke Diabetes Hypertension Hyperlipidemia Anesthesia complication mother coded coming out of anesthesia during her hysterectomy; questionable if an actual anesthesia complication. Clotting disorder Grandmother Heart disease Maternal Ovarian cancer, Onset Age: 20 Maternal Denies family history of Bleeding disorder Cancer Social History Smoking and tobacco status: never smoked Alcohol intake: never Other details last substance use: Denies drug use. Female Reproductive History: Date of last menstrual period: 10/22/19 : 3 Data Anesthesia CBC & Chem 7: 08/29/20 18:28 08/29/20 18:28 Other Labs: Laboratory Results - last 48 hr 08/29/20 08/29/20 08/29/20 18:28 18:28 18:28 WBC 13.1 H RBC 5.02 Hgb 13.3 Hct 41.2 MCV 82.1 MCH 26.5 L MCHC 32.3 RDW 15.3 H Plt Count 262 MPV 9.9 Neut % (Auto) 70.1 Lymph % (Auto) 20.7 Person % (Auto) 7.2 Eos % (Auto) 1.1 Baso % (Auto) 0.4 Neut # (Auto) 9.19 H Lymph # (Auto) 2.7 Person # (Auto) 0.9 Eos # (Auto) 0.2 Baso # (Auto) 0.1 Nucleated RBC % (auto) 0 Nucleated RBCs # 0.0 Sodium Potassium Chloride Carbon Dioxide Anion Gap BUN Creatinine GFR Calculation Glucose POC Glucose Calculated Osmolality Uric Acid Calcium Total Bilirubin AST ALT Alkaline Phosphatase Total Protein Albumin Globulin Urine Color Yellow Urine Appearance Clear Urine pH 6.5 Ur Specific [place] 1.020 Urine Protein Neg Urine Glucose (UA) Norm Urine Ketones Negative Urine Blood 2+ H Urine Nitrate Negative Urine Bilirubin Neg Urine Urobilinogen Norm Ur Leukocyte Esterase Trace H Urine RBC 5-10 H Urine WBC 15-25 H Ur Squamous Epith Cells 15-25 H Calcium Oxalate Crystal 5-10 H Amorphous Sediment Not Reportable Urine Bacteria 2+ H U Random Total Protein 32 Urine Creatinine 164 Protein/Creatinin Ratio 0.20 08/29/20 08/29/20 08/29/20 18:28 20:45 22:00 WBC RBC Hgb Hct MCV MCH MCHC RDW Plt Count MPV Neut % (Auto) Lymph % (Auto) Person % (Auto) Eos % (Auto) Baso % (Auto) Neut # (Auto) Lymph # (Auto) Person # (Auto) Eos # (Auto) Baso # (Auto) Nucleated RBC % (auto) Nucleated RBCs # Sodium 132 L Potassium 3.4 L Chloride 102 Carbon Dioxide 20 L Anion Gap 13.4 BUN 13 Creatinine 0.4 L GFR Calculation 186.2 H Glucose 116 H POC Glucose 67 L 100 Calculated Osmolality 275 L Uric Acid 5.0 Calcium 9.2 Total Bilirubin 0.2 AST 17 ALT 10 Alkaline Phosphatase 120 H Total Protein 6.5 L Albumin 3.3 L Globulin 3.2 Urine Color Urine Appearance Urine pH Ur Specific [place] Urine Protein Urine Glucose (UA) Urine Ketones Urine Blood Urine Nitrate Urine Bilirubin Urine Urobilinogen Ur Leukocyte Esterase Urine RBC Urine WBC Ur Squamous Epith Cells Calcium Oxalate Crystal Amorphous Sediment Urine Bacteria U Random Total Protein Urine Creatinine Protein/Creatinin Ratio 08/30/20 08/30/20 08/30/20 00:04 01:02 03:04 WBC RBC Hgb Hct MCV MCH MCHC RDW Plt Count MPV Neut % (Auto) Lymph % (Auto) Person % (Auto) Eos % (Auto) Baso % (Auto) Neut # (Auto) Lymph # (Auto) Person # (Auto) Eos # (Auto) Baso # (Auto) Nucleated RBC % (auto) Nucleated RBCs # Sodium Potassium Chloride Carbon Dioxide Anion Gap BUN Creatinine GFR Calculation Glucose POC Glucose 85 92 92 Calculated Osmolality Uric Acid Calcium Total Bilirubin AST ALT Alkaline Phosphatase Total Protein Albumin Globulin Urine Color Urine Appearance Urine pH Ur Specific [place] Urine Protein Urine Glucose (UA) Urine Ketones Urine Blood Urine Nitrate Urine Bilirubin Urine Urobilinogen Ur Leukocyte Esterase Urine RBC Urine WBC Ur Squamous Epith Cells Calcium Oxalate Crystal Amorphous Sediment Urine Bacteria U Random Total Protein Urine Creatinine Protein/Creatinin Ratio 08/30/20 08/30/20 08/30/20 05:06 07:20 09:16 WBC RBC Hgb Hct MCV MCH MCHC RDW Plt Count MPV Neut % (Auto) Lymph % (Auto) Person % (Auto) Eos % (Auto) Baso % (Auto) Neut # (Auto) Lymph # (Auto) Person # (Auto) Eos # (Auto) Baso # (Auto) Nucleated RBC % (auto) Nucleated RBCs # Sodium Potassium Chloride Carbon Dioxide Anion Gap BUN Creatinine GFR Calculation Glucose POC Glucose 103 86 84 Calculated Osmolality Uric Acid Calcium Total Bilirubin AST ALT Alkaline Phosphatase Total Protein Albumin Globulin Urine Color Urine Appearance Urine pH Ur Specific [place] Urine Protein Urine Glucose (UA) Urine Ketones Urine Blood Urine Nitrate Urine Bilirubin Urine Urobilinogen Ur Leukocyte Esterase Urine RBC Urine WBC Ur Squamous Epith Cells Calcium Oxalate Crystal Amorphous Sediment Urine Bacteria U Random Total Protein Urine Creatinine Protein/Creatinin Ratio Cardiac Studies: No Data to Display
--- NOTE | 2020-08-30 10:04 | ANES.PROC ---
Anesthesia Procedures Procedure/Date: 08/30/20 Lumbar Puncture: Time Out Performed: Yes Consent: requested by attending/covering physician, from patient and risks and benefits reviewed
--- NOTE | 2020-08-30 10:05 | ANES.PROC ---
Anesthesia Procedures Procedure/Date: 08/30/20 Epidural: Time Out Performed: Yes Consents Signed: Procedure Consent Consent: requested by attending/covering physician, from patient and risks and benefits reviewed Lumbar Level: L3-L4 Epidural position: sitting Epidural procedure: sterile prep of area, 1% lidocaine to numb the area, 18 g needle, neg for paresthesia, test dose given, placed PCEA, no systemic response, sterile dressing applied and 0.2% Ropiavacaine @ mls/hr (13) Additional Comments: MIRTHA at 7cm, catheter at 12cm
[2020-08-30 11:22] LABS: Glucose Point of Care 88 mg/dL (70-110)
[2020-08-30 13:15] LABS: Glucose Point of Care 93 mg/dL (70-110)
[2020-08-30 15:24] LABS: Glucose Point of Care 83 mg/dL (70-110)
[2020-08-30 17:27] LABS: Glucose Point of Care 81 mg/dL (70-110)
[2020-08-30 19:21] LABS: Glucose Point of Care 86 mg/dL (70-110)
[2020-08-30] MEDS: acetaminophen 325 mg Tablet 650 MG PO (19:21)
[2020-08-30 21:20] LABS: Glucose Point of Care 95 mg/dL (70-110)
[2020-08-31] VITALS (20 sets, daily range): BP systolic 129–145; BP diastolic 66–88; PULSE 105–151; RESP 18–20; TEMP 36.2–36.7
--- NOTE | 2020-08-31 00:19 | PM.DELIVERY ---
Delivery Note: Date of delivery: August 31, 2020 Pre-delivery diagnoses: Term Diabetes in Chronic hypertension macrosomia Obesity affecting Post-delivery diagnoses: Term delivered. Same as above Procedure: Spontaneous vaginal delivery Op report anesthesia: Epidural Estimated blood loss (mL): 300 Pre-Delivery Course: The patient is a 30-year-old, 3, para 0-2-0-2, with an LMP in October 2019 and an EDC of 09/19/2020 based on 9-week ultrasound, which places her at 37 3/7 weeks gestation today. who has been receiving care from [facility]. Admitted for induction due to diabetes, and chronic hypertension. HPI: Received appropriate care with MFM in consult. complicated by diabetes, chronic hypertension microsomia and obesity. She has been taking daily vitamins since start of care. labs have all been normal, including negative for HIV. She was found to negative for Group B Strep from screening at 36 weeks. She has gained approximately 11 lbs throughout the . Delivery: The patient was noted to be complete and pushing, so was placed in the dorsal lithotomy position, prepped and draped in the usual sterile fashion for a vaginal delivery. Pt. Noted to have epidural anesthesia. At 0008 the patient delivered a viable at 37+2 weeks male infant weighing 3990 g with scores of 7 and 9 at one and five minutes, respectively. The vertex was delivered spontaneously over an intact perineum. The patient was asked to push and the head delivered spontaneously in the ROJELIO position, over an intact perineum. A nuchal cord was checked and none noted. The anterior shoulder delivered easily and the posterior shoulder followed. The remainder of the infant was easily delivered and the oropharynx and nasopharynx was bulb suctioned. The was noted to have spontaneous cry and spontaneous movement of all four extremities. The cord was clamped x 2 and cut and noted to have 2 arteries and one vein. The was passed to the mother's abdomen where nursing personnel were in attendance. The placenta delivered intact spontaneously and the uterus was explored. 20 units of Pitocin was placed in the IV bag to firm the uterus. Examination of the cervix and vaginal vault did not reveal any lacerations. A vaginal pack was then placed. Examination of the perineum showed no laceration. The vaginal pack was then removed. The patient tolerated this procedure well, and recovered in L&D with her . All sponge and needle counts were correct. A&P Assessment and plan (1) Chronic hypertension in obstetric context in third trimester: Status: Acute (2) macrosomia during in third trimester: Status: Acute Qualifiers: Fetus number: single or unspecified fetus Qualified Code(s): O36.63X0 - Maternal care for excessive growth, third trimester, not applicable or unspecified (3) Diabetes in : Status: Acute Qualifiers: Diabetes in type: pre-existing, type 2 Trimester: second trimester Qualified Code(s): O24.112 - Pre-existing type 2 diabetes mellitus, in , second trimester (4) Obesity affecting : Status: Acute Qualifiers: Trimester: third trimester Qualified Code(s): O99.213 - Obesity complicating , third trimester Coding Level of Care Code Acute Em Physician for Chg Fwd Diagnoses Chronic hypertension in obstetric context in third trimester O10.913 macrosomia during in third trimester O36.63X0 Fetus number: single or unspecified fetus Diabetes in O24.112 Diabetes in type: pre-existing, type 2 Trimester: second trimester Obesity affecting O99.213 Trimester: third trimester
[2020-08-31 00:31] LABS: Glucose Point of Care 99 mg/dL (70-110)
[2020-08-31] MEDS: HYDROcodone-acetaminophen 5-325 mg Tablet PO (05:50)
[2020-08-31 07:29] LABS: Glucose Point of Care 94 mg/dL (70-110)
[2020-08-31] MEDS: docusate sodium 100 mg Capsule PO ×2 (09:53→18:30)
[2020-08-31] MEDS: ibuprofen 800 mg tablet PO ×3 (09:53→21:04)
[2020-08-31] MEDS: prenatal vitamin Capsule 1 CAP PO (09:53)
[2020-08-31 12:35] LABS: Glucose Point of Care 97 mg/dL (70-110)
[2020-08-31 12:58] LABS: Hematocrit 34.1 % (37.0-47.0); Mean Corpuscular HGB Conc 32.3 g/dL (30.0-36.0); Mean Corpuscular Hemoglobin 26.9 pg (28.0-34.0); Mean Corpuscular Volume 83.4 fL (81-99); Mean Platelet Volume 9.7 fL (7.4-10.4); Platelet Count 221 10^3/cmm (130-400); Red Blood Count 4.09 10^6/uL (4.1-5.3); Red Cell Distribution Width 15.5 % (12.1-15.1); White Blood Count 18.1 10^3/uL (4.0-10.0)
[2020-08-31 16:34] LABS: Glucose Point of Care 90 mg/dL (70-110)
[2020-09-01 04:14] VITALS: TEMP 36.2
[2020-09-01 04:15] VITALS: BP 127/79; PULSE 90; RESP 16
[2020-09-01 07:15] LABS: Glucose Point of Care 78 mg/dL (70-110)
[2020-09-01] MEDS: prenatal vitamin Capsule 1 CAP PO (08:34)
[2020-09-01] MEDS: ibuprofen 800 mg tablet PO ×2 (08:34→15:34)
[2020-09-01] MEDS: docusate sodium 100 mg Capsule PO (08:34)
[2020-09-01 08:38] VITALS: BP 138/79; PULSE 116; TEMP 36.2
[2020-09-01 15:36] VITALS: BP 139/77; PULSE 107; TEMP 36.9
--- NOTE | 2020-09-01 16:35 | P.DS_ITS ---
Discharge Providers SOFTWARE DEVELOPMENT PROJECT MANAGER Date of Admission: 08/29/20 17:30 Date of Discharge: 09/01/20 Attending Provider at Admission: Jim Tavarez MD Attending Provider at Discharge: Jim Tavarez MD Primary Care Provider: David Alcaraz NP Diagnoses at Discharge Discharge Diagnosis (1) Chronic hypertension in obstetric context in third trimester: Status: Acute (2) macrosomia during in third trimester: Status: Acute Qualifiers: Fetus number: single or unspecified fetus Qualified Code(s): O36.63X0 - Maternal care for excessive growth, third trimester, not applicable or unspecified (3) Diabetes in : Status: Acute Qualifiers: Diabetes in type: pre-existing, type 2 Trimester: second trimester Qualified Code(s): O24.112 - Pre-existing type 2 diabetes mellitus, in , second trimester (4) Obesity affecting : Status: Acute Qualifiers: Trimester: third trimester Qualified Code(s): O99.213 - Obesity complicating , third trimester Reason for Visit Reason for Visit: IUP Hospital Course Hospital Course The patient is a 30-year-old, 3, para 0-2-0-2, with an LMP in October 2019 and an EDC of 09/19/2020 based on 9-week ultrasound, which places her at 37 3/7 weeks gestation today. who has been receiving care from [facility]. Admitted for induction due to diabetes, and chronic hypertension. HPI: Received appropriate care with MFM in consult. complicated by diabetes, chronic hypertension microsomia and obesity. She has been taking daily vitamins since start of care. labs have all been normal, including negative for HIV. She was found to negative for Group B Strep from screening at 36 weeks. She has gained approximately 11 lbs throughout the . Induction was started with misoprostol for cervical ripening and followed with oxytocin. She progressed to have a spontaneous vaginal delivery without complications. She delivered a male with a birthweight of 3990 g, Apgars 7 and 9. Glucose was under control throughout labor and . She is afebrile and hemodynamically stable. Tolerating diet well. Ambulating without difficulty. Information Peripartum Data: Infant Delivery Method: Vaginal Physical Exam Narrative: EXAM NARRATIVE: GA; alert and oriented x 3 HEENT: normal Breasts: engorged Nipples - skin intact Lungs; clear to auscultation Heart: regular rhythm, no murmurs. Abd: Appropriately tender. BS+. Uterine fundus below umbilicus. No Fundal Tenderness. Perineum: normal lochia. Extremities: no edema, no cyanosis, no tenderness. Urinary Catheter Management^: Larsen Latex Free: Cath Placed During This Visit: yes, but has since been removed by the nurse Reason for Continuing Indwelling Catheter: Decision to DC Catheter Urinary Catheter Date of Insertion: 08/30/20 Urinary Catheter Time of Insertion: 09:15 Date Urinary Catheter Removed: 08/31/20 Time Urinary Catheter Discontinued: 00:06 Discharge Data Data Completed and Pending: Labs from last 24 hours 09/01/20 07:09 POC Glucose 78 Vitals: Last Vital Signs Temp 98.4 F 09/01/20 15:36 Pulse 107 H 09/01/20 15:36 Resp 16 09/01/20 04:15 BP 139/77 09/01/20 15:36 Pulse Ox 98 08/30/20 10:18 Discharge Plan Discharge Patient Disposition: Home Condition: Stable Prescriptions: New ferrous sulfate 325 mg (65 mg iron) tablet 325 mg PO BID Qty: 60 RF: 0 ibuprofen 800 mg tablet 800 mg PO TID PRN (Reason: pain) Qty: 60 RF: 0 acetaminophen 325 mg capsule 325 mg PO Q4H PRN (Reason: fever or pain) Qty: 60 RF: 0 docusate sodium [Colace] 100 mg capsule 100 mg PO BID Qty: 60 RF: 0 Continued Plus 29 mg iron- 1 mg tablet 1 tab PO DAILY Qty: 90 RF: 3 loratadine [Claritin] 10 mg tablet 10 mg PO DAILY RF: 0 aspirin [Aspirin Low Dose] 81 mg tablet,delayed release (DR/EC) 81 mg PO DAILY RF: 0 insulin aspart U-100 [Novolog Flexpen U-100 Insulin] 100 unit/mL (3 mL) insulin pen See Rx Instructions SUBCUT .COMPLEX RF: 0 Levemir U-100 Insulin 100 unit/mL solution See Rx Instructions SUBCUT .every 12 hours RF: 0 nifedipine 30 mg tablet extended release 30 mg PO DAILY Qty: 30 RF: 3 (DME) blood-glucose meter [Blood Glucose Monitoring] Kit See Rx Instructions .ROUTE .MEDSUPPLY Qty: 1 RF: 0 (DME) Blood Glucose Test Strip See Rx Instructions .ROUTE .MEDSUPPLY Qty: 120 RF: 5 (DME) lancets [Lancets,Thin] Misc See Rx Instructions .ROUTE .MEDSUPPLY Qty: 120 RF: 5 (DME) insulin syringe,safetyneedle 1 mL 29 gauge x 1/2 syringe See Rx Instructions .ROUTE .MEDSUPPLY Qty: 100 RF: 12 Discharge Orders: Discharge Order (Routine); Ordered 09/01/20 Ordered By: Abelardo Mccollum Referrals: Abelardo Mccollum MD [Physician] - 2 weeks (2 weeks to monitor glucose and blood pressure 6week follow up September 29 at 10:45am) Discharge Diet: Diabetic Discharge Activity: Increase activity as tolerated Patient Instructions: Pre-eclampsia and Eclampsia (GEN), OB Discharge Report, OB Food/Drug Interaction Guide, OB Home Care Instructions, OB Care at Home, OB Vaginal Deliveries - [facility] Activity Restrictions/Additional Instructions: 1. Please call [facility] on next working day to make your post-operative appointment in 2 weeks to monitor glucose and blood pressure. 2. Please stay home until you come back to the clinic on first post-operative check up. 3. Please follow instructions on your medications CAREFULLY. 4. If you have abdominal incision, do not cover it unless dressing is necessary because of drainage. OK to shower, but avoid bath. Leave steri-strips until they fall off. If they are still on one week after surgery, you may remove them. 5. If you had vaginal surgery, your doctor may instruct you to take SITZ bath. 6. Yellow, blood tinged odorous vaginal discharge is usually normal after hysterectomy or vaginal surgeries. 7. No sexual intercourse, tampons, or douches until you are completely released from the post-operative care. 8. Avoid constipation by eating right and maybe using some Metamucil or Milk of Magnesia. 9. All prescription refills are given during the working hours. Please do no wait till it runs out. Call the clinic at [phone] before your medication runs out. The clinic will get in touch with your doctor to prescribe medications if necessary. 10. Please remain within 40 mile radius from our hospital because emergencies do happen now and then during the post-operative period. 11. If you have stairs at home, take one step at a time slowly and minimize the number of trips. It helps to stay in one floor for the next few days. No lifting except what you can lift by one hand until you are released from the post-operative care. 12. Driving is discouraged until you are well healed. It may be 3-4 weeks before you feel strong enough to drive. You should be able to turn and look through the rear window without pain and you should be able to push the brake pedal very hard without pain before you drive. No fast rules, but SAFETY should be your primary concern. DO NOT drive if you are on sedating medications such as narcotics. 13. Call the clinic (during working hours) to make urgent appointment or go to the Emergency room, if any of the following occurs: i. Vaginal bleeding becomes heavy, more than a period. ii. Incision becomes red and sore, or drains pus. iii. Your temperature is over 100.4 or you have chill. iv. IV site becomes red and swollen (a little ``knot?? is usually OK) v. Persistent nausea and vomiting vi. Persistent constipation or diarrhea vii. Rash or allergic reaction to medications. Discharge Attestations SOFTWARE DEVELOPMENT PROJECT MANAGER Time Spent in Discharge Care*: greater than 30 min Coding Level of Care Code Acute Activities Manager for Chg Fwd Diagnoses Chronic hypertension in obstetric context in third trimester O10.913 macrosomia during in third trimester O36.63X0 Fetus number: single or unspecified fetus Diabetes in O24.112 Diabetes in type: pre-existing, type 2 Trimester: second trimester Obesity affecting O99.213 Trimester: third trimester
[2020-09-01 17:48] VITALS: BP 148/84; PULSE 114; TEMP 36.4
[2020-09-01 17:50] VITALS: BP 148/84; PULSE 114; RESP 16; TEMP 36.4
== END 2020-09-01 17:50 | disposition home or self-care (01) | DRG 805 ==
PROVIDERS: Obstetrics & Gynecology; Admitting Provider Obstetrics & Gynecology; PCP Nurse Practitioner Family; Visit Provider Obstetrics & Gynecology
DX: O10.92 Unspecified pre-existing hypertension complicating childbirth (principal); O24.12 Pre-existing type 2 diabetes mellitus, in childbirth; Z37.0 Single live birth; E11.9 Type 2 diabetes mellitus without complications; O99.214 Obesity complicating childbirth; Z3A.37 37 weeks gestation of pregnancy; Z79.4 Long term (current) use of insulin; O36.63X0 Maternal care for excessive fetal growth, third trimester, not applicable or unspecified; E66.9 Obesity, unspecified; Z79.82 Long term (current) use of aspirin
CPT/HCPCS: 36415; 36416; 51702; 59025; 59409; 80053; 81000; 81001; 82570; 82962; 84156; 84550; 85025; 85027; 98960; J2795; J3010

== ENCOUNTER → 2020-09-15 09:33 | Outpatient (BNVA) | payer BC, MEDICAID, SELFPAY | PROVIDERS: PCP Nurse Practitioner Family; Visit Provider Obstetrics & Gynecology | DX: Z86.32 Personal history of gestational diabetes (principal); K59.00 Constipation, unspecified | CPT/HCPCS: 82947 ==

== ENCOUNTER 2021-08-22 15:32 | Outpatient (CLI) | payer BC, MEDICAID, SELFPAY ==
--- NOTE | 2021-08-22 | XR_ITS ---
WS: [id number] Thoracic spine, 3 views, 08/22/2021 Clinical Data: BACK PAIN Comparison: None. Findings: No compression fractures are seen. The disc heights are normal. The paravertebral region is normal. XR/XR thoracic spine 2V [id number] Impression: Negative thoracic spine.
--- NOTE | 2021-08-22 | XR_ITS ---
WS: [id number] Lumbar spine, 5 views including obliques, 08/22/2021 Clinical Data: LOW BACK PAIN Comparison: Lumbar spine, 07/20/2018. Findings: No compression fractures or subluxation is seen. No disc space narrowing is seen. The transverse proc esses and SI joints are normal. There is minimal anterior osteoarthritic spurring at L1-L2. The oblique films show no spondylolysis. XR/XR lumbar spine min 4V [id number] Impression: Minimal osteoarthritis.
== END 2021-08-22 15:33 | disposition home or self-care (01) ==
LOC: RAD 15:37
PROVIDERS: PCP Nurse Practitioner Family; Visit Provider Nurse Practitioner Family
DX: M54.6 Pain in thoracic spine (principal); M47.816 Spondylosis without myelopathy or radiculopathy, lumbar region
CPT/HCPCS: 72070; 72110

== ENCOUNTER → 2021-10-24 14:06 | Outpatient (BNVA) | payer BC, MEDICAID, SELFPAY | PROVIDERS: PCP Nurse Practitioner Family; Referring Provider Nurse Practitioner Family; Visit Provider Specialist | DX: M79.643 Pain in unspecified hand (principal); R20.0 Anesthesia of skin | CPT/HCPCS: 95910 ==

== ENCOUNTER 2021-12-24 19:37 | Emergency (ER) | payer BC, MEDICAID, SELFPAY ==
[2021-12-24 19:52] VITALS: BP 143/95; PULSE 99; RESP 16; TEMP 37.2; O2SAT 99; BMI 50.6
[2021-12-24 20:59] LABS: Basophils # 0.1 10^3/uL (0.0-0.1); Basophils % 0.5 %; Eosinophils # 0.2 10^3/uL (0.0-0.8); Eosinophils % 1.6 %; Hematocrit 45.2 % (37.0-47.0); Hemoglobin 15.2 g/dL (11.5-15.3); Lymphocytes # 3.6 10^3/uL (0.8-4.8); Lymphocytes % 37.4 %; Mean Corpuscular HGB Conc 33.6 g/dL (30.0-36.0); Mean Corpuscular Hemoglobin 27.2 pg (28.0-34.0); Mean Corpuscular Volume 80.9 fl (81-99); Monocytes # 0.5 10^3/uL (0.2-0.9); Monocytes % 4.8 %; Neutrophils % 55.5 %; Nucleated Red Blood Cells % 0 %; Platelet Count 353 10^3/cmm (130-400); Red Blood Count 5.59 10^6/uL (4.1-5.3); Red Cell Distribution Width 12.8 % (12.1-15.1); White Blood Count 9.7 10^3/uL (4.0-10.0)
[2021-12-24 21:11] LABS: HCG Quantitative 3.63 mIU/mL
--- NOTE | 2021-12-24 21:31 | W.ED.PREGNAN ---
HPI - General: Chief complaint: Vaginal Bleeding Stated complaint: Preg\Cramping and Bleeding Time Seen by Provider: 12/24/21 21:20 Source: patient Mode of arrival: ambulatory Limitations: no limitations History of Present Illness: 31-year-old female who states that her last menstruation was roughly 6 weeks ago she states she had a positive urine a week ago. States that today she has had some light bleeding. She states it is mainly spotting not enough to go through a pad. She denies any weakness denies any severe pain. Denies any worsening improving factors. Denies passing any clots. Date of Last Menstrual Period: 11/11/21 Associated symptoms: Deny abdominal pain, headache(s), nausea or vomiting Review of Systems Const: Denies: fever(s), chills, body aches or change in appetite Eyes: Denies: blurry vision or eye discomfort ENMT: Denies: throat pain or dental pain Card: Denies: chest pain Resp: Denies: dyspnea GI: Denies: abdominal pain, nausea, vomiting or diarrhea : Reports: vaginal bleeding Musc: Denies: neck pain or back pain Skin/Breast: Denies: rash Neuro: Denies: headache(s) Psych: Denies: depression Qamar/Lymph: Denies: easy bruising All/Imm: Denies: urticaria PFSH ED PFSH: Medical History Diabetes No pertinent past medical history neghx:thyroid,dvt/pe,herpes Denies partner hx of herpes Urolithiasis Surgical History History of cholecystectomy History of lithotripsy (~07/2018) History of renal stent (~07/2018) right History of tonsillectomy History of wisdom tooth extraction Family History Family/Other CAD (coronary artery disease) Mother Stroke Diabetes Hypertension Hyperlipidemia Anesthesia complication mother coded coming out of anesthesia during her hysterectomy; questionable if an actual anesthesia complication. Clotting disorder Grandmother Heart disease Maternal Ovarian cancer, Onset Age: 20 Maternal Denies family history of Bleeding disorder Cancer Social History Smoking and tobacco status: never smoked Alcohol intake: never Other details last substance use: Denies drug use. Female Reproductive History: Date of last menstrual period: 11/11/21 Physical Exam Const: COMMON NORMALS: no acute distress, patient oriented x3 and healthy appearing HENMT: COMMON NORMALS: normocephalic and atraumatic HEAD & SCALP: normocephalic and atraumatic Eye: COMMON NORMALS: Equal, round and reactive pupils present and EOMs intact bilaterally PUPIL: Yes Equal, round and reactive pupils present Neck/C-Spine: COMMON NORMALS: full ROM and supple Chest: COMMONS NORMALS: normal inspection of the chest and normal palpation of entire chest wall Resp: COMMON NORMALS: normal respiratory effort, No retractions, No use of accessory muscles and clear to auscultation bilaterally AUSCULTATION: clear to auscultation bilaterally Cardio: COMMON NORMALS: regular rate, regular rhythm and No murmurs present (Cardio) RATE: regular rate RHYTHM: regular rhythm GI: COMMON NORMALS: Normal to inspection, nondistended, normoactive bowel sounds present, Soft to palpation, non-tender and no masses PALPATION: Yes Soft to palpation Extremity: COMMON NORMALS: normal to inspection and full ROM Neuro: COMMON NORMALS: patient oriented x3, moves all extremities and no focal motor deficits Psych: COMMON NORMALS: mental status grossly normal, Normal thought process present and cooperative THOUGHT PROCESS: Normal thought process present Skin: COMMON NORMALS: no rashes or lesions noted and no wounds GENERAL SKIN EXAM: no rashes or lesions noted Course Vital Signs: Vital signs: Vital Signs Temperature 99.0 F 12/24/21 19:52 Pulse Rate 99 12/24/21 19:52 Respiratory Rate 16 12/24/21 19:52 Blood Pressure 143/95 12/24/21 19:52 Pulse Oximetry 99 12/24/21 19:52 MDM - OB/Uterine Contractions Medical Decision Making Patient presents here with vaginal bleeding did have a positive test a week ago. Her quantitative here is quite low at 3.6. Patient is likely already miscarried with it being that low. I did have an in-depth conversation with her she has no pain at this time and no heavy bleeding do not believe we need to do an ultrasound at this point as her quantitative level is so low. She does have an appointment with her OB actually in 2 days I informed her she needs to have her quantitative redrawn and then to trend it. If she has increasing pain or increasing bleeding she is to return to the ER she understands agrees to plan. Lab Data : 12/24/21 20:40 Laboratory Results WBC 9.7 10^3/uL (4.0-10.0) 12/24/21 20:40 RBC 5.59 10^6/uL (4.1-5.3) H 12/24/21 20:40 Hgb 15.2 g/dL (11.5-15.3) 12/24/21 20:40 Hct 45.2 % (37.0-47.0) 12/24/21 20:40 MCV 80.9 fl (81-99) L 12/24/21 20:40 MCH 27.2 pg (28.0-34.0) L 12/24/21 20:40 MCHC 33.6 g/dL (30.0-36.0) 12/24/21 20:40 RDW 12.8 % (12.1-15.1) 12/24/21 20:40 Plt Count 353 10^3/cmm (130-400) 12/24/21 20:40 MPV 9.0 fL (7.4-10.4) 12/24/21 20:40 Neut % (Auto) 55.5 % 12/24/21 20:40 Lymph % (Auto) 37.4 % 12/24/21 20:40 [place] % (Auto) 4.8 % 12/24/21 20:40 Eos % (Auto) 1.6 % 12/24/21 20:40 Baso % (Auto) 0.5 % 12/24/21 20:40 Neut # (Auto) 5.40 10^3/uL (1.8-7.7) 12/24/21 20:40 Lymph # (Auto) 3.6 10^3/uL (0.8-4.8) 12/24/21 20:40 [place] # (Auto) 0.5 10^3/uL (0.2-0.9) 12/24/21 20:40 Eos # (Auto) 0.2 10^3/uL (0.0-0.8) 12/24/21 20:40 Baso # (Auto) 0.1 10^3/uL (0.0-0.1) 12/24/21 20:40 Nucleated RBC % (auto) 0 % 12/24/21 20:40 Nucleated RBCs # 0.0 /100WBC 12/24/21 20:40 Ser , Semi-Qnt 3.63 mIU/mL 12/24/21 20:40 Discharge Plan Discharge Patient Disposition: Home Clinical Impression: Vaginal bleeding, Threatened miscarriage Condition: Stable Prescriptions: No Action loratadine [Claritin] 10 mg tablet 10 mg PO DAILY 0RF ibuprofen 800 mg tablet 800 mg PO TID PRN (Reason: pain) Qty: 60 0RF acetaminophen 325 mg capsule 325 mg PO Q4H PRN (Reason: fever or pain) Qty: 60 0RF Discharge Orders: Discharge ED (Routine); Ordered 12/24/21 Ordered By: Francia Juarez Referrals: David Alcaraz NP [Primary Care Provider] - Discharge Diet: Advance as tolerated Discharge Activity: Resume usual activity Patient Instructions: Threatened Miscarriage (ED) Coding Level of Care Code ED Blower And Compressor Assembler for Sharlene Aguilar
[2021-12-24 21:44] VITALS: BP 139/97; PULSE 91; RESP 18; TEMP 37.2; O2SAT 98
== END 2021-12-24 21:48 | disposition home or self-care (01) ==
PROVIDERS: Emergency Provider Emergency Medicine; PCP Nurse Practitioner Family
DX: O20.0 Threatened abortion (principal); Z3A.00 Weeks of gestation of pregnancy not specified; O24.111 Pre-existing type 2 diabetes mellitus, in pregnancy, first trimester
CPT/HCPCS: 84702; 85025; 99282

== ENCOUNTER → 2023-06-10 10:19 | Outpatient (BNVA) | payer OTHER, MEDICAID, SELFPAY | PROVIDERS: PCP Nurse Practitioner Family; Visit Provider Nurse Practitioner Women's Health | DX: Z32.00 Encounter for pregnancy test, result unknown (principal); N92.6 Irregular menstruation, unspecified; E66.01 Morbid (severe) obesity due to excess calories | CPT/HCPCS: 81025; 83036; 84439; 84443; 84481; 84702 ==

== ENCOUNTER 2023-06-19 18:06 | Emergency (ER) | payer OTHER, MEDICAID, SELFPAY ==
[2023-06-19 18:14] VITALS: BP 177/80; PULSE 99; TEMP 36.8; O2SAT 98; BMI 54.1
[2023-06-19 19:08] LABS: Basophils # 0.1 10^3/uL (0.0-0.1); Basophils % 0.4 %; Eosinophils # 0.2 10^3/uL (0.0-0.8); Eosinophils % 1.5 %; Hematocrit 44.5 % (36-47); Lymphocytes # 3.5 10^3/uL (0.8-4.8); Lymphocytes % 30.1 %; Mean Corpuscular HGB Conc 32.1 g/dL (30-55); Mean Corpuscular Hemoglobin 26.7 pg (27-33); Mean Platelet Volume 8.4 fL (7.4-10.4); Monocytes # 0.7 10^3/uL (0.2-0.9); Monocytes % 6.3 %; Neutrophils # 7.13 10^3/uL (1.8-7.7); Neutrophils % 61.2 %; Nucleated Red Blood Cells % 0 %; Platelet Count 305 10^3/cmm (157-399); Red Blood Count 5.36 10^6/uL (3.85-5.65); Red Cell Distribution Width 13.5 % (12.1-15.1); White Blood Count 11.67 10^3/uL (3.29-11.43)
[2023-06-19 19:39] LABS: Alanine Aminotransferase 15 U/L (0-33); Albumin Level 4.2 g/dL (3.5-5.2); Alkaline Phosphatase 63 U/L (35-105); Anion Gap 18.7 (5-19); Aspartate Amino Transferase 14 U/L (0-32); Blood Urea Nitrogen 10 mg/dL (6-20); Calcium 9.3 mg/dL (8.5-10.5); Carbon Dioxide 21 mmol/L (22-29); Chloride 100 mmol/L (98-107); Globulin 3.5 g/dL (1.3-4.6); Glomerular Filtration Rate 141.2 mL/min (90-130); Glucose 98 mg/dL (65-115); Lipase 26 U/L (13-60); Osmolality Calculated 281 mOsm/kg (285-295); Potassium 3.7 mmol/L (3.5-5.1); Sodium 136 mmol/L (136-145); Total Bilirubin 0.2 mg/dL (0.15-1.2); Total Protein 7.7 g/dL (6.6-8.7)
--- NOTE | 2023-06-19 20:20 | ED_ITS ---
HPI - 2 General: Chief complaint: Vaginal Bleeding Stated complaint: 8wks preg bleeding, cramp headache Time Seen by Provider: 06/19/23 20:15 Source: patient Mode of arrival: ambulatory Limitations: no limitations History of Present Illness: 33-year-old female who is roughly 8 week s states she is had some spotting last few weeks and has passing some clots today she had some mild cramping. Patient had 2 previous miscarriages she has had 3 live births. Denies any fever denies any discharge denies any dysuria Associated symptoms: Deny abdominal pain, headache(s), nausea or vomiting Review of Systems 2 Const: Denies: fever(s), chills, body aches or change in appetite ENMT: Denies: throat pain or dental pain Card: Denies: chest pain Resp: Denies: dyspnea GI: Denies: abdominal pain, nausea, vomiting or diarrhea : Reports: vaginal bleeding Musc: Denies: neck pain or back pain Skin/Breast: Denies: rash Neuro: Denies: headache(s) PFSH ED 2 PFSH: Medical History History of gestational diabetes History of gestational hypertension (~2020) No pertinent past medical history neghx:htn,thyroid,dvt/pe, PCP: [facility] at [facility] Diabetes Urolithiasis Surgical History History of wisdom tooth extraction History of renal stent (~07/2018) right History of tonsillectomy History of cholecystectomy History of lithotripsy (~07/2018) Family History Family/Other CAD (coronary artery disease) Mother Stroke Diabetes Hypertension Hyperlipidemia Anesthesia complication mother coded coming out of anesthesia during her hysterectomy; questionable if an actual anesthesia complication. Clotting disorder difficulty clotting; patient tested negative Grandmother Heart disease Maternal Ovarian cancer, Onset Age: 20 Maternal Denies family history of Bleeding disorder Cancer Physical Exam 2 Const: COMMON NORMALS: no acute distress, patient oriented x3 and healthy appearing HENMT: COMMON NORMALS: normocephalic and atraumatic HEAD & SCALP: n ormocephalic and atraumatic Neck/C-Spine: COMMON NORMALS: full ROM and supple Chest: COMMONS NORMALS: normal inspection of the chest Resp: COMMON NORMALS: normal respiratory effort Cardio: COMMON NORMALS: regular rate, regular rhythm and No murmurs present (Cardio) RATE: regular rate RHYTHM: regular rhythm GI: COMMON NORMALS: Normal to inspection, nondistended, normoactive bowel sounds present, Soft to palpation, non-tender and no masses PALPATION: Yes Soft to palpation Extremity: COMMON NORMALS: normal to inspection and full ROM Neuro: COMMON NORMALS: patient oriented x3, moves all extremities and no focal motor deficits Psych: COMMON NORMALS: mental status grossly normal, Normal thought process present and cooperative THOUGHT PROCESS: Normal thought process present Skin: COMMON NORMALS: no rashes or lesions noted and no wounds GENERAL SKIN EXAM: no rashes or lesions noted Course 2 Vital Signs: Vital signs: Vital Signs Temperature 98.3 F 06/19/23 18:14 Pulse Rate 99 06/19/23 18:14 Blood Pressure 177/80 06/19/23 18:14 Pulse Oximetry 98 06/19/23 18:14 Oxygen Delivery Me thod Room Air 06/19/23 18:14 MDM - OB/Uterine Contractions Medical Decision Making Patient presents here with threatened miscarriage I did a bedside ultrasound that showed IUP consistent with dates heart rate 146. Blood work here is normal she stable for discharge she is follow-up with her OB and return if worsening she understands agrees to plan. Medical Records I reviewed the patient's medical records. Lab Data I reviewed the patient's lab results. 06/19/23 19:03 06/19/23 19:03 Laboratory Results WBC 11.67 10^3/uL (3.29-11.43) H 06/19/23 19:03 RBC 5.36 10^6/uL (3.85-5.65) 06/19/23 19:03 Hgb 14.30 g/dL (11.27-16.99) 06/19/23 19:03 Hct 44.5 % (36-47) 06/19/23 19:03 MCV 83.0 fl (85-98) L 06/19/23 19:03 MCH 26.7 pg (27-33) L 06/19/23 19:03 MCHC 32.1 g/dL (30-55) 06/19/23 19:03 RDW 13.5 % (12.1-15.1) 06/19/23 19:03 Plt Count 305 10^3/cmm (157-399) 06/19/23 19:03 MPV 8.4 fL (7.4-10.4) 06/19/23 19:03 Neut % (Auto) 61.2 % 06/19/23 19:03 Lymph % (Auto) 30.1 % 06/19/23 19:03 [place] % (Auto) 6.3 % 06/19/23 19:03 Eos % (Auto) 1.5 % 06/19/23 19:03 Baso % (Auto) 0.4 % 06/19/23 19:03 Neut # (Auto) 7.13 10^3/uL (1.8-7.7) 06/19/23 19:03 Lymph # (Auto) 3.5 10^3/uL (0.8-4.8) 06/19/23 19:03 Howard # (Auto) 0.7 10^3/uL (0.2-0.9) 06/19/23 19:03 Eos # (Auto) 0.2 10^3/uL (0.0-0.8) 06/19/23 19:03 Baso # (Auto) 0.1 10^3/uL (0.0-0.1) 06/19/23 19:03 Nucleated RBC % (auto) 0 % 06/19/23 19:03 Nucleated RBCs # 0.0 /100WBC 06/19/23 19:03 Sodium 136 mmol/L (136-145) 06/19/23 19:03 Potassium 3.7 mmol/L (3.5-5.1) 06/19/23 19:03 Chloride 100 mmol/L (98-107) 06/19/23 19:03 Carbon Dioxide 21 mmol/L (22-29) L 06/19/23 19:03 Anion Gap 18.7 (5-19) 06/19/23 19:03 BUN 10 mg/dL (6-20) 06/19/23 19:03 Creatinine 0.5 mg/dL (0.5-0.9) 06/19/23 19:03 GFR Calculation 141.2 mL/min (90-130) H 06/19/23 19:03 Glucose 98 mg/dL (65-115) 06/19/23 19:03 Calculated Osmolality 281 mOsm/kg (285-295) L 06/19/23 19:03 Calcium 9.3 mg/dL (8.5-10.5) 06/19/23 19:03 Total Bilirubin 0.2 mg/dL (0.15-1.2) 06/19/23 19:03 AST 14 U/L (0-32) 06/19/23 19:03 ALT 15 U/L (0-33) 06/19/23 19:03 Alkaline Phosphatase 63 U/L (35-105) 06/19/23 19:03 Total Protein 7.7 g/dL (6.6-8.7) 06/19/23 19:03 Albumin 4.2 g/dL (3.5-5.2) 06/19/23 19:03 Globulin 3.5 g/dL (1.3-4.6) 06/19/23 19:03 Lipase 26 U/L (13-60) 06/19/23 19:03 Ser , Semi-Qnt 16162.00 mIU/mL 06/19/23 19:03 Urine Color Yellow (Yellow) 06/19/23 20:23 Urine Appearance Clear (CLEAR) 06/19/23 20:23 Urine pH 5 (5-7) 06/19/23 20:23 Ur Specific [place] 1.015 (1.005-1.030) 06/19/23 20:23 Urine Protein Neg (Negative) 06/19/23 20:23 Urine Glucose (UA) Norm (Normal) 06/19/23 20: Urine Ketones Negative (Negative) 06/19/23 20:23 Urine Blood 3+ (Negative) H 06/19/23 20:23 Urine Nitrate Negative (Negative) 06/19/23 20:23 Urine Bilirubin Neg (Negative) 06/19/23 20: Urine Urobilinogen Norm mg/dL (Negative) 06/19/23 20:23 Ur Leukocyte Esterase Trace (Negative) H 06/19/23 20:23 Urine RBC 0-4 /hpf (0-2) H 06/19/23 20:23 Urine WBC 0-4 /hpf (0-5) H 06/19/23 20:23 Ur Squamous Epith Cells 5-10 /hpf (0-5) H 06/19/23 20:23 Calcium Oxalate Crystal 0-4 /hpf H 06/19/23 20:23 Amorphous Sediment Not Reportable 06/19/23 20:23 Urine Bacteria Trace /hpf (NONE) 06/19/23 20:23 No radiology studies performed this visit Discharge Plan Discharge Patient Disposition: Home Clinical Impression: Threatened miscarriage Condition: Stable Prescriptions: No Action loratadine [Claritin] 10 mg tablet 10 mg PO DAILY metformin 500 mg tablet extended release 24 hr 500 mg PO DAILY Gummies 400 mcg-35 mg- 25 mg-5 mg tablet,chewable 1 tab PO DAILY biotin 1 mg capsule 1 mg PO DAILY melatonin 5 mg tablet,disintegrating 15 mg PO DAILY Discharge Orders: Discharge ED (Routine); Ordered 06/19/23 Ordered By: Francia Juarez Referrals: Abelardo Mccollum MD [Physician] - 1-3 days Discharge Diet: Advance as tolerated Discharge Activity: Resume usual activity Patient Instructions: Threatened Miscarriage (ED) Coding Level of Care Code 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
[2023-06-19] MEDS: metoclopramide 10 mg Tablet PO (20:25)
[2023-06-19 20:51] LABS: Add Urine Microscopic? YES; Bilirubin Urine Neg (Negative); Blood Urine 3+ (Negative); Glucose Urine UA Norm (Normal); Ketones Urine Negative (Negative); Leukocyte Esterase Urine Trace (Negative); Nitrate Urine Negative (Negative); Protein Urine Neg (Negative); Specific Gravity, Urine 1.015 (1.005-1.030); Urine Appearance Clear (CLEAR); Urine Color Yellow (Yellow); Urobilinogen Urine Norm (Negative); pH Urine 5 (5-7)
[2023-06-19 20:52] LABS: Add Urine Culture? No; Bacteria Urine TRACE /hpf; Calcium Oxalate Crystals Urine 0-4 /hpf; RBC Urine 0-4 /hpf (0-2); WBC Urine 0-4 /hpf (0-5)
== END 2023-06-19 21:38 | disposition home or self-care (01) ==
PROVIDERS: Emergency Provider Emergency Medicine; PCP Nurse Practitioner Family
DX: O20.0 Threatened abortion (principal); Z3A.08 8 weeks gestation of pregnancy; O24.111 Pre-existing type 2 diabetes mellitus, in pregnancy, first trimester; Z79.84 Long term (current) use of oral hypoglycemic drugs
CPT/HCPCS: 36415; 80053; 81001; 83690; 84702; 85025; 99283; J8597

== ENCOUNTER → 2023-07-01 08:48 | Outpatient (BNVA) | payer MEDICAID, SELFPAY | PROVIDERS: PCP Nurse Practitioner Family; Visit Provider Obstetrics & Gynecology | DX: Z36.87 Encounter for antenatal screening for uncertain dates (principal) | CPT/HCPCS: 76801 ==

== ENCOUNTER → 2023-07-18 09:14 | Outpatient (BNVA) | payer OTHER, MEDICAID, SELFPAY | PROVIDERS: PCP Nurse Practitioner Family; Visit Provider Obstetrics & Gynecology | DX: Z34.90 Encounter for supervision of normal pregnancy, unspecified, unspecified trimester (principal) | CPT/HCPCS: 80053; 80307; 82570; 82950; 84156; 84315; 84550; 85025; 86592; 86762; 86803; 86850; 86900; 87086; 87340; 87491; 87591; 87806; 88175 ==

== ENCOUNTER → 2023-08-01 08:10 | Outpatient (BNVA) | payer OTHER, MEDICAID, SELFPAY | PROVIDERS: PCP Nurse Practitioner Family; Visit Provider Obstetrics & Gynecology | DX: R73.03 Prediabetes (principal); Z79.4 Long term (current) use of insulin | CPT/HCPCS: 82951; 82952 ==

== ENCOUNTER → 2023-08-06 08:21 | Outpatient (BNVA) | payer OTHER, SELFPAY | PROVIDERS: PCP Nurse Practitioner Family; Visit Provider Obstetrics & Gynecology | DX: Z34.90 Encounter for supervision of normal pregnancy, unspecified, unspecified trimester (principal); O24.319 Unspecified pre-existing diabetes mellitus in pregnancy, unspecified trimester; E66.01 Morbid (severe) obesity due to excess calories; Z3A.16 16 weeks gestation of pregnancy | CPT/HCPCS: 81000; 83036 ==

== ENCOUNTER → 2023-08-15 07:41 | Outpatient (BNVA) | payer OTHER, SELFPAY | PROVIDERS: PCP Nurse Practitioner Family; Visit Provider Obstetrics & Gynecology | DX: Z34.90 Encounter for supervision of normal pregnancy, unspecified, unspecified trimester (principal) | CPT/HCPCS: 81000 ==

== ENCOUNTER → 2023-08-29 08:02 | Outpatient (BNVA) | payer OTHER, SELFPAY | PROVIDERS: PCP Nurse Practitioner Family; Visit Provider Obstetrics & Gynecology | DX: O09.91 Supervision of high risk pregnancy, unspecified, first trimester (principal); Z3A.00 Weeks of gestation of pregnancy not specified | CPT/HCPCS: 81000; 87086 ==

== ENCOUNTER → 2023-09-10 14:29 | Outpatient (BNVA) | payer OTHER, SELFPAY | PROVIDERS: PCP Nurse Practitioner Family; Visit Provider Obstetrics & Gynecology | DX: O09.92 Supervision of high risk pregnancy, unspecified, second trimester (principal); Z3A.20 20 weeks gestation of pregnancy | CPT/HCPCS: 76805 ==

== ENCOUNTER → 2023-09-26 07:55 | Outpatient (BNVA) | payer OTHER, SELFPAY | PROVIDERS: PCP Nurse Practitioner Family; Visit Provider Obstetrics & Gynecology | DX: O09.72 Supervision of high risk pregnancy due to social problems, second trimester (principal); Z3A.00 Weeks of gestation of pregnancy not specified | CPT/HCPCS: 81000 ==

== ENCOUNTER → 2023-10-10 08:33 | Outpatient (BNVA) | payer OTHER, SELFPAY | PROVIDERS: PCP Nurse Practitioner Family; Visit Provider Nurse Practitioner Women's Health | DX: O09.72 Supervision of high risk pregnancy due to social problems, second trimester (principal); O24.319 Unspecified pre-existing diabetes mellitus in pregnancy, unspecified trimester; Z86.19 Personal history of other infectious and parasitic diseases; Z87.59 Personal history of other complications of pregnancy, childbirth and the puerperium; O09.92 Supervision of high risk pregnancy, unspecified, second trimester; O99.210 Obesity complicating pregnancy, unspecified trimester; A59.9 Trichomoniasis, unspecified; F41.9 Anxiety disorder, unspecified; F32.A Depression, unspecified; Z3A.24 24 weeks gestation of pregnancy | CPT/HCPCS: 84156; 84315; 87086; 87491; 87591 ==

== ENCOUNTER 2023-10-17 11:06 | Outpatient (CLI) | payer OTHER, SELFPAY ==
[2023-10-17 11:51] LABS: Total Volume Urine 4000 ml
[2023-10-17 12:11] LABS: Glomerular Filtration Rate 182.7 mL/min (90-130)
[2023-10-17 12:27] LABS: Patient Weight 315.6 Lbs
[2023-10-17 12:43] LABS: Creatinine Clearance, Urine 518 mL/Min (88-128); Creatinine, Urine (Cre Clear) 72 mg/dL (28-217)
== END 2023-10-17 11:07 | disposition home or self-care (01) ==
LOC: LAB 11:09
PROVIDERS: PCP Family Medicine; Visit Provider Obstetrics & Gynecology
DX: Z87.59 Personal history of other complications of pregnancy, childbirth and the puerperium (principal)
CPT/HCPCS: 82575

== ENCOUNTER 2023-11-03 10:04 | Outpatient (CLI) | payer OTHER, SELFPAY ==
[2023-11-03] VITALS (20 sets, daily range): BP systolic 119–143; BP diastolic 61–84; PULSE 90–115; RESP 16; TEMP 36.7; O2SAT 97–100; BMI 55.7
[2023-11-03 10:50] LABS: Add Urine Culture? No; Bacteria Urine TRACE /hpf; Bilirubin Urine Neg (Negative); Blood Urine Trace (Negative); Glucose Urine UA Norm (Normal); Ketones Urine 1+ (Negative); Leukocyte Esterase Urine Negative (Negative); Nitrate Urine Negative (Negative); Protein Urine Neg (Negative); RBC Urine 0-4 /hpf (0-2); Specific Gravity, Urine 1.015 (1.005-1.030); Squamous Epithelial Cell Urine 15-25 /hpf (0-5); Urine Appearance Hazy (CLEAR); Urine Color Yellow (Yellow); Urobilinogen Urine Neg (Negative); WBC Urine 0-4 /hpf (0-5); pH Urine 6 (5-7)
[2023-11-03 11:46] LABS: Glucose Point of Care 96 mg/dL (70-110)
[2023-11-03] MEDS: lactated ringers 1,000 ML 999 ML IV (11:52)
[2023-11-03 11:55] LABS: Basophils % 0.3 %; Eosinophils # 0.1 10^3/uL (0.0-0.8); Eosinophils % 0.8 %; Hematocrit 38.5 % (36-47); Lymphocytes # 2.2 10^3/uL (0.8-4.8); Lymphocytes % 18.7 %; Mean Corpuscular HGB Conc 32.2 g/dL (30-55); Mean Corpuscular Hemoglobin 27.4 pg (27-33); Monocytes # 0.9 10^3/uL (0.2-0.9); Monocytes % 7.4 %; Neutrophils # 8.61 10^3/uL (1.8-7.7); Neutrophils % 72.1 %; Nucleated Red Blood Cells % 0 %; Platelet Count 251 10^3/cmm (157-399); Red Blood Count 4.53 10^6/uL (3.85-5.65); White Blood Count 11.96 10^3/uL (3.29-11.43)
--- NOTE | 2023-11-03 12:07 | US_ITS ---
WS: [id number] BIOPHYSICAL PROFILE AND LIMITED OB. HISTORY: GDM COMPARISON: 07/01/2023, 09/10/2023 Presentation: Vertex. Cervix: Closed and normal length. Placenta: Anterior, no previa or abruption. Grade: 1 HEART: FHR of 161BPM. measurements: BPD = 7.1 cm = 28w2d; 39% HC = 24.2 cm = 26w2d; 3rd % AC = 24.7 cm = 28w6d; 62% FL = 5.3 cm = 28w2d; 36% JOSE: 26.5 cm EFW: 1223.1g; 42% AGA by ultrasound: 28-week 0-day STEFANIA by ultrasound: 01/26/2024 BPD and abdominal circumference are normal. Appropriate growth of the fetus since the prior study. Biophysical profile: Parameters are as follows: Breathin Movement: 2 Tone: 2 Fluid volume: 2 US/US OB lmt w/ BPP wo NST IMPRESSION: 1. Biophysical profile score: 8/8. 2. Single intrauterine gestation of 28-week 0-day with an 01/26/2024. Appropria te growth of the fetus since the prior study. 3. Abdominal circumference in the weight are appropriate. 4. Polyhydramnios. Amniotic fluid index is measuring just greater than normal.
[2023-11-03 12:27] LABS: Alanine Aminotransferase 8 U/L (0-33); Albumin Level 3.5 g/dL (3.5-5.2); Alkaline Phosphatase 64 U/L (35-105); Anion Gap 11.6 (5-19); Aspartate Amino Transferase 10 U/L (0-32); Blood Urea Nitrogen 6 mg/dL (6-20); Carbon Dioxide 24 mmol/L (22-29); Chloride 104 mmol/L (98-107); Creatinine Clr Calc Pharmacy 277.1601; Globulin 3.2 g/dL (1.3-4.6); Glomerular Filtration Rate 182.7 mL/min (90-130); Glucose 97 mg/dL (65-115); Osmolality Calculated 280 mOsm/kg (285-295); Potassium 3.6 mmol/L (3.5-5.1); Sodium 136 mmol/L (136-145); Total Bilirubin 0.2 mg/dL (0.15-1.2); Total Protein 6.7 g/dL (6.6-8.7)
[2023-11-03] MEDS: terbutaline 1 mg/mL INJ 0.25 MG SUBCUT (12:30)
[2023-11-03] MEDS: NIFEdipine ER (24 hr) 30 mg Tablet PO (12:52)
--- NOTE | 2023-11-03 13:08 | P.TNLD_ITS ---
OB L&D Triage Visit Information: Date of evaluation: 11/03/23 Comments/Additional reason(s) for visit: 33yo female at 28.2 wk IUP , STEFANIA 08/2023 observed on labor and delivery triage with complaints of spotting early this a.m, with mild cramping. Patient has history of type 2 diabetes, managed with insulin therapy and a continuous glucose monitor. Patient sees MFM in [place]. EFM?reassuring with contractions noted every 5 minutes. Uterine contractions and irritability treated with IV fluid, 0.25 mg of Brethine subcu, Procardia 30 mg ER p.o. Lab?glucose 96, otherwise unremarkable. Cervix?closed. Spotting resolved. Contractions and irritability spaced out. Will get ultrasound for evaluation. Evaluation: Baseline heart rate: 140 Variability: Average (6-10) monitor accelerations: Present 10x10 monitor decelerations: None Cervical dilation (cm): 0 Laboratory results: Laboratory Tests 11/03/23 11/03/23 11/03/23 10:25 11:38 11:39 WBC 11.96 H RBC 4.53 Hgb 12.40 Hct 38.5 MCV 85.0 MCH 27.4 MCHC 32.2 RDW 15.0 Plt Count 251 MPV 9.0 Neut % (Auto) 72.1 Lymph % (Auto) 18.7 [place] % (Auto) 7.4 Eos % (Auto) 0.8 Baso % (Auto) 0.3 Neut # (Auto) 8.61 H Lymph # (Auto) 2.2 [place] # (Auto) 0.9 Eos # (Auto) 0.1 Baso # (Auto) 0.0 Nucleated RBC % (a uto) 0 Nucleated RBCs # 0.0 Sodium 136 Potassium 3.6 Chloride 104 Carbon Dioxide 24 Anion Gap 11.6 BUN 6 Creatinine 0.4 L GFR Calculation 182.7 H Glucose 97 POC Glucose 96 Calculated Osmolal ity 280 L Calcium 9.0 Total Bilirubin 0.2 AST 10 ALT 8 Alkaline Phosphata se 64 Total Protein 6.7 Albumin 3.5 Globulin 3.2 Urine Color Yellow Urine Appearance Hazy A Urine pH 6 Ur Specific Gravit y 1.015 Urine Protein Neg Urine Glucose (UA) Norm Urine Ketones 1+ H Urine Blood Trace H Urine Nitrate Negative Urine Bilirubin Neg Urine Urobilinogen Neg Ur Leukocyte Karla ase Negative Urine RBC 0-4 H Urine WBC 0-4 H Ur Squamous Epith Cells 15-25 H Amorphous Sediment Not Reportable Urine Bacteria Trace Vital signs: Vital Signs - 24 hr 11/03/23 10:26 11/03/23 10:27 11/03/23 10:27 Pulse Rate 100 Respiratory Rate 16 16 Blood Pressure 143/74 Pulse Oximetry 11/03/23 10:41 11/03/23 10:41 11/03/23 10:56 Pulse Rate 96 Respiratory Rate Blood Pressure 141/70 140/71 Pulse Oximetry 11/03/23 10:56 11/03/23 11:16 11/03/23 11:16 Pulse Rate 96 96 Respiratory Rate Blood Pressure 120/71 Pulse Oximetry 11/03/23 11:26 11/03/23 11:26 11/03/23 11:41 Pulse Rate 94 Respiratory Rate Blood Pressure 119/61 133/79 Pulse Oximetry 11/03/23 11:41 11/03/23 11:56 11/03/23 11:56 Pulse Rate 90 93 Respiratory Rate Blood Pressure 134/82 Pulse Oximetry 11/03/23 12:11 11/03/23 12:11 11/03/23 12:26 Pulse Rate 101 H Respiratory Rate Blood Pressure 136/84 142/75 Pulse Oximetry 11/03/23 12:26 11/03/23 12:33 11/03/23 12:33 Pulse Rate 94 96 Respiratory Rate Blood Pressure Pulse Oximetry 97 11/03/23 12:38 11/03/23 12:38 11/03/23 12:41 Pulse Rate 91 Respiratory Rate Blood Pressure 135/67 Pulse Oximetry 99 11/03/23 12:41 11/03/23 12:43 11/03/23 12:43 Pulse Rate 95 99 Respiratory Rate Blood Pressure Pulse Oximetry 98 11/03/23 12:48 11/03/23 12:48 11/03/23 12:53 Pulse Rate 106 H Respiratory Rate Blood Pressure Pulse Oximetry 99 100 11/03/23 12:53 11/03/23 12:56 11/03/23 12:56 Pulse Rate 108 H 96 Respiratory Rate Blood Pressure 135/69 Pulse Oximetry 11/03/23 12:58 11/03/23 12:58 11/03/23 13:03 Pulse Rate 112 H Respiratory Rate Blood Pressure Pulse Oximetry 100 99 11/03/23 13:03 Pulse Rate 115 H Respiratory Rate Blood Pressure Pulse Oximetry Care STEFANIA Calculator Estimated Delivery Date Method Current WG Current Estimate 01/24/24 Ultrasound #1 28w 2d Other Estimates 01/08/24 LMP (Certain) 30w 4d Specific Issues/Plans * OVERT DM * HX GEST HTN * MORBID OBESITY * ANXIETY/DEPRESSION Final Diagnosis Final Diagnosis (1) 28 weeks gestation of : Plan: 1. Observe on labor and delivery for uterine activity and vaginal bleeding. 2. Lab 3. OB ultrasound for evaluation 4. Terbutaline 0.25 mg subcu 5. Procardia 30 ER p.o. 6. Will DC to home after resolution of contractions. 7. Patient to keep MFM visit on 11/06/2023 and to keep primary OB visit with Dr. Mccollum on 11/07/2023. Status: Acute Code(s): Z3A.28 - 28 weeks gestation of (2) uterine contractions in third trimester, antepartum: Status: Acute Code(s): O47.03 - False labor before 37 completed weeks of gestation, third trimester (3) History of delivery: Status: Acute Code(s): Z87.51 - Personal history of pre-term labor (4) Type 2 diabetes mellitus: Status: Acute Code(s): E11.9 - Type 2 diabetes mellitus without complications (5) Anxiety and depression: Status: Acute Code(s): F41.9 - Anxiety disorder, unspecified; F32.A - Depression, unspecified (6) Obesity affecting : Status: Acute Code(s): O99.210 - Obesity complicating , unspecified trimester Coding Level of Care Code Acute Code for Chg Fwd Diagnoses 28 weeks gestation of Z3A.28 uterine contractions in third trimester, antepartum O47.03 History of delivery Z87.51 Type 2 diabetes mellitus E11.9 Anxiety and depression F41.9; F32.A Obesity affecting O99.210
== END 2023-11-03 13:50 | disposition home or self-care (01) ==
LOC: OPOB 10:08 → OBGYN 10:15
PROVIDERS: Obstetrics & Gynecology; PCP Family Medicine; Visit Provider Obstetrics & Gynecology
DX: O26.859 Spotting complicating pregnancy, unspecified trimester (principal); Z3A.28 28 weeks gestation of pregnancy; O47.03 False labor before 37 completed weeks of gestation, third trimester; O99.210 Obesity complicating pregnancy, unspecified trimester; Z87.51 Personal history of pre-term labor; E11.9 Type 2 diabetes mellitus without complications; F41.9 Anxiety disorder, unspecified; F32.A Depression, unspecified; Z3A.00 Weeks of gestation of pregnancy not specified
CPT/HCPCS: 36415; 36416; 59025; 76815; 76819; 80053; 81001; 82962; 85025; 96372; 99211; J3105; J7120

== ENCOUNTER → 2023-11-07 08:08 | Outpatient (BNVA) | payer MEDICAID, SELFPAY | PROVIDERS: PCP Family Medicine; Visit Provider Obstetrics & Gynecology | DX: O09.72 Supervision of high risk pregnancy due to social problems, second trimester (principal); O09.92 Supervision of high risk pregnancy, unspecified, second trimester; O24.319 Unspecified pre-existing diabetes mellitus in pregnancy, unspecified trimester; Z87.59 Personal history of other complications of pregnancy, childbirth and the puerperium; O99.210 Obesity complicating pregnancy, unspecified trimester; A59.9 Trichomoniasis, unspecified; F41.9 Anxiety disorder, unspecified; F32.A Depression, unspecified; Z3A.28 28 weeks gestation of pregnancy | CPT/HCPCS: 83036; 84315; 85025 ==

== ENCOUNTER → 2023-11-11 15:11 | Outpatient (BNVA) | payer SELFPAY | PROVIDERS: PCP Family Medicine; Referring Provider Nurse Practitioner Women's Health; Visit Provider Internal Medicine Cardiovascular Disease | DX: O24.319 Unspecified pre-existing diabetes mellitus in pregnancy, unspecified trimester (principal); Z3A.00 Weeks of gestation of pregnancy not specified; I45.10 Unspecified right bundle-branch block; R00.0 Tachycardia, unspecified | CPT/HCPCS: 93005 ==

== ENCOUNTER 2023-11-25 07:58 | Outpatient (CLI) | payer MEDICAID, SELFPAY ==
--- NOTE | 2023-11-25 08:00 | USCV_ITS ---
Amara Graff Age: 33 Gender: F : 1990 Exam Date: 11/25/2023 08:08 Ordering Phys: Gabbi Cornelius APN Technologist: VANCE Exam Location: [facility] [place] Indication: abn ekg BP: 138 / 82 HR: 97 Rhythm: Sinus Technical Quality: Adequate MEASUREMENTS (Male / Female) Normal Values 2D ECHO LVOT Diameter 2.0 cm LV Ejection Fraction MOD 2C 61.0 % LV Ejection Fraction 2C AL 61.1 % LA Diameter 3.4 cm RA Systolic Volume 4C AL 52.1 ml RA Systolic Volume 4C MOD 50.4 ml LA Sys Volume AL 49.9 cm cubed LA Sys Volume Index AL 19.4 cm cubed/m squared Aorta at Sinotubular Diameter 2.5 cm IVC Diameter 1.8 cm DOPPLER AV Peak Velocity 189.0 cm/s LVOT Peak Velocity 165.0 cm/s AV Area Cont Eq vti 3.3 cm squared AV Area Cont Eq pk 2.8 cm squared MV Peak Velocity 143.0 cm/s MV Area PHT 5.8 cm squared Mitral E to A Ratio 1.2 TR Peak Velocity 141.0 cm/s TR Peak Gradient 8.0 mmHg Right Atrial Pressure 3.0 mmHg Pulmonary Artery Systolic Pressu 11.0 mmHg PV Peak Velocity 144.0 cm/s FINDINGS Left Ventricle Left ventricle is normal size. LV systolic function is normal with EF 55 to 60%. No regional wall motion abnormalities are seen. Right Ventricle Normal in size and function. Right Atrium Normal in size with Left Atrium Normal in size. Mitral Valve Structurally normal mitral valve. Trace mitral regurgitation. Aortic Valve Structurally normal aortic valve. No significant stenosis or regurgitation. Tricuspid Valve Insufficient TR jet to calculate RVSP Pulmonic Valve Not well visualized Pericardium Normal Aorta Normal in size IVC Appears to be normal CONCLUSIONS LV systolic function is normal with EF of 55 to 60%. Trace mitral regurgitation No comparison studies are available. Brian France MD (Electronically Signed) Final Date: 05 December 2023 19:44 S
== END 2023-11-25 07:59 | disposition home or self-care (01) ==
LOC: RAD 07:59
PROVIDERS: PCP Family Medicine; Visit Provider Nurse Practitioner Women's Health
DX: R94.31 Abnormal electrocardiogram [ECG] [EKG] (principal); E66.01 Morbid (severe) obesity due to excess calories; E11.9 Type 2 diabetes mellitus without complications; I34.0 Nonrheumatic mitral (valve) insufficiency
CPT/HCPCS: 93306

== ENCOUNTER 2023-12-23 09:11 | Outpatient (CLI) | payer MEDICAID, SELFPAY ==
[2023-12-23 09:24] VITALS: RESP 18
[2023-12-23 09:26] VITALS: BP 131/59; PULSE 106
[2023-12-23 09:34] VITALS: BMI 54.2
[2023-12-23 09:41] VITALS: BP 124/58; PULSE 105
== END 2023-12-23 09:50 | disposition home or self-care (01) ==
LOC: OPOB 09:15 → OBGYN 09:21
PROVIDERS: PCP Family Medicine; Visit Provider Obstetrics & Gynecology
DX: O16.9 Unspecified maternal hypertension, unspecified trimester (principal); O24.419 Gestational diabetes mellitus in pregnancy, unspecified control; Z3A.00 Weeks of gestation of pregnancy not specified
CPT/HCPCS: 59025; 76819

== ENCOUNTER → 2023-12-24 08:18 | Outpatient (BNVA) | payer MEDICAID, SELFPAY | PROVIDERS: PCP Family Medicine; Visit Provider Nurse Practitioner Women's Health | DX: Z34.90 Encounter for supervision of normal pregnancy, unspecified, unspecified trimester (principal) | CPT/HCPCS: 84315; 87077; 87081; 87184; 87491; 87591 ==

== ENCOUNTER 2023-12-26 11:55 | Outpatient (CLI) | payer MEDICAID, SELFPAY ==
[2023-12-26 12:00] VITALS: BMI 54.3
[2023-12-26 12:10] VITALS: BP 139/87; PULSE 118
[2023-12-26 12:30] VITALS: BP 145/83; PULSE 100
[2023-12-26 12:44] VITALS: BP 145/83; PULSE 100
== END 2023-12-26 12:44 | disposition home or self-care (01) ==
LOC: OPOB 11:56 → OBGYN 12:01
PROVIDERS: PCP Family Medicine; Visit Provider Obstetrics & Gynecology
DX: O24.419 Gestational diabetes mellitus in pregnancy, unspecified control (principal); Z3A.00 Weeks of gestation of pregnancy not specified
CPT/HCPCS: 59025; 99211

== ENCOUNTER → 2023-12-29 09:31 | Outpatient (BNVA) | payer MEDICAID, SELFPAY | PROVIDERS: PCP Family Medicine; Visit Provider Obstetrics & Gynecology | DX: Z34.90 Encounter for supervision of normal pregnancy, unspecified, unspecified trimester (principal) | CPT/HCPCS: 76819 ==

== ENCOUNTER 2023-12-30 14:14 | Outpatient (CLI) | payer MEDICAID, SELFPAY ==
[2023-12-30 14:32] VITALS: RESP 16
[2023-12-30 14:34] VITALS: BP 176/77; PULSE 103
[2023-12-30 14:35] VITALS: RESP 18; BMI 56.3
[2023-12-30 14:40] VITALS: BP 129/69; PULSE 104
[2023-12-30 14:56] VITALS: BP 126/71; PULSE 112
== END 2023-12-30 15:05 ==
LOC: OPOB 14:21 → OBGYN 14:21
PROVIDERS: PCP Family Medicine; Visit Provider Obstetrics & Gynecology
DX: O24.419 Gestational diabetes mellitus in pregnancy, unspecified control (principal); Z3A.00 Weeks of gestation of pregnancy not specified
CPT/HCPCS: 59025

== ENCOUNTER → 2024-01-01 09:26 | Outpatient (BNVA) | payer MEDICAID, SELFPAY | PROVIDERS: PCP Family Medicine; Visit Provider Obstetrics & Gynecology | DX: Z34.90 Encounter for supervision of normal pregnancy, unspecified, unspecified trimester (principal) | CPT/HCPCS: 76819 ==

== ENCOUNTER 2024-01-02 11:40 | Outpatient (CLI) | payer MEDICAID, SELFPAY ==
[2024-01-02 11:40] VITALS: BMI 55.7
[2024-01-02 12:01] VITALS: BP 145/86; PULSE 104
[2024-01-02 12:16] VITALS: BP 141/84; PULSE 100
[2024-01-02 12:29] VITALS: BP 141/84; PULSE 100
== END 2024-01-02 12:29 | disposition home or self-care (01) ==
LOC: OPOB 11:44 → OBGYN 11:44
PROVIDERS: PCP Family Medicine; Visit Provider Obstetrics & Gynecology
DX: O24.419 Gestational diabetes mellitus in pregnancy, unspecified control (principal); Z3A.00 Weeks of gestation of pregnancy not specified
CPT/HCPCS: 59025; 84315; 99211

== ENCOUNTER → 2024-01-05 11:14 | Outpatient (BNVA) | payer MEDICAID, SELFPAY | PROVIDERS: PCP Family Medicine; Visit Provider Obstetrics & Gynecology | DX: O09.93 Supervision of high risk pregnancy, unspecified, third trimester (principal); Z3A.00 Weeks of gestation of pregnancy not specified | CPT/HCPCS: 76819 ==

== ENCOUNTER 2024-01-06 11:55 | Outpatient (CLI) | payer MEDICAID, SELFPAY ==
[2024-01-06 11:55] VITALS: BMI 54.9
[2024-01-06 12:10] VITALS: BP 132/74; PULSE 105
[2024-01-06 12:30] VITALS: BP 131/72; PULSE 100
[2024-01-06 12:35] VITALS: BP 131/72; PULSE 100; RESP 16
== END 2024-01-06 12:35 | disposition home or self-care (01) ==
LOC: OPOB 11:58 → OBGYN 11:59
PROVIDERS: Absent Provider Obstetrics & Gynecology; PCP Family Medicine; Visit Provider Obstetrics & Gynecology
DX: O24.419 Gestational diabetes mellitus in pregnancy, unspecified control (principal); Z3A.00 Weeks of gestation of pregnancy not specified
CPT/HCPCS: 59025; 99211

== ENCOUNTER → 2024-01-08 12:33 | Outpatient (BNVA) | payer MEDICAID, SELFPAY | PROVIDERS: PCP Family Medicine; Visit Provider Obstetrics & Gynecology | DX: O24.319 Unspecified pre-existing diabetes mellitus in pregnancy, unspecified trimester (principal); Z3A.00 Weeks of gestation of pregnancy not specified | CPT/HCPCS: 76819; 81000 ==

== ENCOUNTER 2024-01-09 18:40 | Outpatient (CLI) | payer MEDICAID, SELFPAY ==
[2024-01-09 19:18] VITALS: BMI 54.2
[2024-01-09 19:21] VITALS: BP 195/115; PULSE 100
[2024-01-09 19:29] VITALS: BP 141/70; PULSE 95
[2024-01-09 19:45] VITALS: BP 141/70; PULSE 95; RESP 16
== END 2024-01-09 20:02 | disposition home or self-care (01) ==
LOC: OPOB 18:45 → OBGYN 18:46
PROVIDERS: PCP Family Medicine; Visit Provider Obstetrics & Gynecology
DX: O24.419 Gestational diabetes mellitus in pregnancy, unspecified control (principal); Z3A.00 Weeks of gestation of pregnancy not specified
CPT/HCPCS: 59025; 99211

== ENCOUNTER 2024-04-09 12:34 | Outpatient (CLI) | payer MEDICAID, SELFPAY ==
--- NOTE | 2024-04-09 12:38 | CT_ITS ---
WS: [id number] CT ABDOMEN AND PELVIS WITH CONTRAST HISTORY: ABDOMINAL PAIN, EPIGASTRIC TECHNIQUE: Imaging performed of the abdomen and pelvis with IV contrast. Single phase imaging of the abdomen. Coronal and sagittal reformats are submitted. All CT scans at [facility] use at [address] one of these dose optimization techniques: automated exposure control; mA and/or kV adjustment per patient size (includes targeted exams where dose is matched to clinical indication); or iterative re construction. IV CONTRAST: Omnipaque 350; 100 mL IV. Oral contrast: Yes. DLP: 1126.27 mGy COMPARISON: 07/24/2018 Lower thorax: Lung bases are clear. Heart is normal size. Small hiatal hernia. Liver/biliary system: Normal size with no intrahepatic dilatation. Gallbladder: Status post cholecystectomy. Pancreas: Normal size pancreas and pancreatic duct. No adjacent inflammation. Spleen: Normal size spleen. No mass or infarct. Adrenal glands: Normal. Right kidney: Normal. Left kidney: Normal. Aorta: Normal. Lymphadenopathy: None. Free fluid: None. GI tract: Unremarkable. Normal appendix. No diverticulitis. Abdominal wall: Fat containing umbilical hernia. Pelvis: No free fluid or adenopathy within the pelvis. Uterus is midline. Both ovaries are identified and contain small follicles. Bones: Unremarkable. CT/CT abdomen pelvis w con* [id number] IMPRESSION: 1. Status post cholecystectomy. 2. No GI tract obstruction. 3. No renal obstruction. 4. No acute abdominal or pelvic abnormalities.
[2024-04-09] MEDS: iohexol 350 mg/mL 500 mL Btl (per mL) PO (14:01)
[2024-04-09] MEDS: iohexol 350 mg/mL 500 mL Btl (per mL) IV (14:02)
== END 2024-04-09 12:35 | disposition home or self-care (01) ==
LOC: RAD 12:35
PROVIDERS: PCP Family Medicine; Visit Provider Family Medicine
DX: R10.13 Epigastric pain (principal); Z90.49 Acquired absence of other specified parts of digestive tract
CPT/HCPCS: 74177

== ENCOUNTER 2024-11-19 10:49 | Outpatient (CLI) | payer MEDICAID, SELFPAY ==
--- NOTE | 2024-11-19 10:56 | MR_ITS ---
WS: [id number] MRI HEAD WITHOUT CONTRAST TECHNIQUE: Sagittal T1, T2 axial, T2 axial FLAIR, axial and coronal T1 images, axial susceptibility weighted imaging, axial diffusion weighted images, and coronal T2 images were obtained. CLINICAL INFORMATION: MIGRAINE HEADACHE COMPARISON: MRI 2006 FINDINGS: No evidence of restricted diffusion to suggest acute ischemia. No suspicious intracranial signal abnormalities. Normal amaro-white differentiation. Normal posterior fossa. Normal vascular flow voids at the skull base. No extra-axial fluid collections. No evidence of mass or mass effect. Paranasal sinuses and mastoid air cells are well aerated. No hemosiderin on susceptibility-weighted images. Normal optic chiasm and pituitary infundibulum. Temporal lobes and hippocampal formations are normal in appearance. MR/MR head wo con* [id number] IMPRESSION: 1. No evidence of restricted diffusion to suggest acute ischemia. 2. No suspicious intracranial signal abnormalities. Normal amaro-white differen tiation. Normal posterior fossa. Normal vascular flow voids at the skull base. 3. No hemosiderin on susceptibility-weighted images. 4. Normal optic chiasm and pituitary infundibulum. 5. Temporal lobes and hippocampal formations are normal in appearance.
== END 2024-11-19 10:50 | disposition home or self-care (01) ==
PROVIDERS: PCP Family Medicine; Visit Provider Nurse Practitioner Family
DX: G43.909 Migraine, unspecified, not intractable, without status migrainosus (principal)
CPT/HCPCS: 70551